=== PATIENT | female | born 1940 | race Caucasian/White ===

== ENCOUNTER 2020-12-19 08:20 | Outpatient (RCR) | payer MEDICARE, SELFPAY | END 2020-12-19 23:59 | LOC: IMMUN 08:20 | PROVIDERS: PCP Family Medicine; Visit Provider Family Medicine | DX: Z23 Encounter for immunization (principal) | CPT/HCPCS: 0011A; 0012A; 91301 ==

== ENCOUNTER 2023-04-03 10:06 | Inpatient (IN) | payer MEDICARE, MEDICAID, SELFPAY ==
[2023-04-03 10:07] VITALS: BP 135/75; PULSE 80; RESP 14; TEMP 36.9; O2SAT 97; BMI 35.9
--- NOTE | 2023-04-03 10:18 | ED.VIS.FALL ---
HPI HPI - Fall History of Present Illness Chief Complaint: Fall PFSH PFSH Home Medications hydrochlorothiazide 12.5 mg tablet 12.5 mg PO DAILY 04/03/23 [History Last Taken Unknown] losartan 100 mg tablet 100 mg PO DAILY 04/03/23 [History Last Taken Unknown] metformin 1,000 mg tablet 1,000 mg PO BID 04/03/23 [History Last Taken Unknown] simvastatin 40 mg tablet 40 mg PO QHS 04/03/23 [History Last Taken Unknown] Allergy/AdvReac Type Severity Reaction Status Date / Time dapagliflozin [From Farxiga] Allergy Hives Verified 04/03/23 10:21 ramipril [From Altace] Allergy Other Verified 04/03/23 10:20 EXAM Physical Exam Const Vital Signs: 04/03/23 10:07 04/03/23 10:38 04/03/23 12:07 Temperature 98.4 F Temperature Source Temporal Pulse Rate 80 84 Respiratory Rate 14 16 Respiratory Effort Normal Non-Labored Respiratory Pattern Normal Blood Pressure 135/75 H 143/70 H Blood Pressure Mean 95 94 Pulse Ox 97 98 Oxygen Delivery Method Room Air Room Air MDM MDM MDM Narrative Medical decision making narrative: HISTORY OF PRESENT ILLNESS: 83-year-old female here for fall, diffuse weakness in the setting of several days of diarrhea. History is provided by the patient and daughter. The patient states she has been diffusely weak and having multiple falls over the last several weeks. Most recently last night when she fell forward as her chair started to move backwards hitting her head. She denies taking blood thinners. Denies loss of consciousness or vomiting. Denies focal numbness or weakness. Daughter further states patient's been suffering from several days of diarrhea. Patient states she has no recent travel, antibiotics, surgeries or sick contacts. They also state the patient took approximately 3 doses of her home antidiabetes medicines as well as antihypertensives. Daughter notes approximately 12 hours after this her blood sugars were running low as low as 54. They further state the patient's had lower extremity edema and mild dyspnea on exertion over the last several days to weeks as well. The patient denies any cough, chest pain. She denies any vomiting. She does note increased urinary frequency as well REVIEW OF SYSTEMS: Pertinent positives: Weakness, diarrhea, shortness of breath, lower extremity edema, dyspnea on exertion Pertinent negatives: Chest pain, headache, focal weakness PHYSICAL EXAM: Nursing triage notes reviewed, Vital signs reviewed Primary Survey Airway: Intact Breathing: Bilateral breath sounds Circulation: Palpable bilateral femorals, Palpable bilateral radial, Palpable bilateral DP and Palpable bilateral PT Disability / Spine precautions GCS Score: Eye Openin Verbal Response: 5 Motor Response: 6 Secondary Survey Constitutional: Please see MDM Head: Atraumatic, Midface stable, NO jaw malocclusion, No Cephalohematoma, and No Lacerations noted Eye: Pupils equal round and reactive to light, Extraocular muscles intact and No periorbital ecchymosis or stepoff, no evidence of entrapment ENT: Oropharynx clear, no lacerations, no hemotympanum, no raccoon eyes or medrano sign Cervical spine / Neck: No cervical spine bony tenderness, crepitance, or stepoff deformity Trachea midline Lungs: Clear to auscultation, No asymmetric rise and No crepitus, no flail chest Cardiac: Regular rate and rhythm and No murmurs Abdomen: Soft, Nontender and No rebound Pelvis: Pelvis stable to compression : No evidence of genital injury Back: No midline bony tenderness to thoracic/lumbar/sacral spines Neuro: At baseline, intact strength and sensation in bilateral upper and lower extremities. 2+ patellar reflexes bilaterally. Extremities: NO gross Deformities, 2+ pitting edema to bilateral lower extremities Psych: Normal affect Nursing triage notes reviewed, Vital signs reviewed MEDICAL DECISION MAKING: Chief Complaint: Weakness, diarrhea, falls External records reviewed: No recent ED visits or encounters in our system. [facility] Narrative: The patient was hemodynamically stable, afebrile, nontoxic-appearing. No focal neurologic deficits. Primary secondary trauma surveys concerning for the following I considered the following differential diagnosis: Intracranial hemorrhage, cervical spine abnormality, hypoglycemia, dehydration, CHF exacerbation, pneumonia, COVID, UTI, anemia, electrolyte abnormalities, COVID, flu I obtained a broad lab and imaging work-up to further elucidate the etiology of patient's complaints. CT scans of the head and cervical spine were negative for acute bony injury. EKG without evidence of STEMI. No evidence of UTI. No evidence of hypoglycemia or significant dehydration however there was evidence of significant hyponatremia. Chest x-ray showed evidence of possible pneumonia. These 2 diagnoses likely explain a lot of the patient's symptoms. Hyponatremia is likely secondary to diarrhea. Patient does note a cough, she is not febrile, she is hypoxic, she has no white count lower suspicion for pneumonia but will give prophylactic antibiotics given hyponatremia and association with legionella. I suspect the patient's hyponatremia may be secondary to volume overload given lower extremity edema, elevated BNP and this may explain the patient's consolidations on x-ray which may be pulmonary edema. Patient will require inpatient admission for sodium correction, possible diuresis, possible antibody microbial therapy. Discussed with hospitalist Dr. Caballero who agreed to admit the patient Factors affecting care: Type 2 diabetes, hypertension hyperlipidemia Social determinants of health: Elderly, poor health literacy History obtained from others: The patient's daughter Shared decision making: I will have a discussion with the patient and or visitors regarding risk/benefits of further testing or admission. They will be made aware of of the risk/benefits inherent in this decision they will be given the opportunity to voice understanding. Consults: Lab Data Attestation: I reviewed the patient's lab results. Lab results narrative: EKG with normal sinus rhythm, normal axis, normal intervals, no obvious STEMI, no ischemic changes, no prior for comparison CBC without leukocytosis to suggest systemic inflammation, mild anemia with no prior for comparison, no thrombocytopenia UA without evidence of infection noted glucosuria LFTs without evidence of significant hepatobiliary obstruction there is mild elevation alk phosphatase however this is not significant likely is not contributory to the patient's symptoms Lipase is wnl indicating no pancreatic inflammation. Troponin is negative, no evidence of myocardial ischemia BNP elevated consistent with volume overload COVID, flu negative Labs: Laboratory Results - last 24 hr 04/03/23 04/03/23 04/03/23 10:45 10:50 10:50 WBC 10.2 RBC 3.34 L Hgb 10.3 L Hct 30.8 L MCV 92.2 MCH 30.8 MCHC 33.4 RDW Std Deviation 44.9 H RDW Coeff of Dora 13.2 Plt Count 299 MPV 9.1 Immature Gran % (Auto) 0.900 Neut % (Auto) 76.2 H Lymph % (Auto) 15.3 L [place] % (Auto) 6.4 Eos % (Auto) 0.9 Baso % (Auto) 0.3 Absolute Neuts (auto) 7.8 H Absolute Lymphs (auto) 1.55 Nucleated RBC % 0 Sodium Potassium Chloride Carbon Dioxide Anion Gap BUN Creatinine Estim Creat Clear Calc Est GFR (MDRD) Af Amer Est GFR (MDRD) Non-Af BUN/Creatinine Ratio Glucose Calcium Total Bilirubin 0.40 Direct Bilirubin 0.14 AST 23 ALT 27 Alkaline Phosphatase 135 H Troponin I High Sens B-Natriuretic Peptide Total Protein 6.5 Albumin 2.6 L Globulin 3.9 Lipase Urine Color Yellow Urine Clarity Clear Urine pH 7.0 Ur Specific [place] 1.010 Urine Protein Negative Urine Glucose (UA) 100 H Urine Ketones Negative Urine Occult Blood Negative Urine Nitrite Negative Urine Bilirubin Negative Urine Urobilinogen Normal Ur Leukocyte Esterase Negative Urine RBC 0 SEEN Urine WBC 0 SEEN Ur Squamous Epith Cells 0 SEEN Urine Bacteria 0 SEEN Urine Mucus 0 SEEN 04/03/23 04/03/23 10:50 10:50 WBC RBC Hgb Hct MCV MCH MCHC RDW Std Deviation RDW Coeff of Dora Plt Count MPV Immature Gran % (Auto) Neut % (Auto) Lymph % (Auto) [place] % (Auto) Eos % (Auto) Baso % (Auto) Absolute Neuts (auto) Absolute Lymphs (auto) Nucleated RBC % Sodium 120 L Potassium 4.1 Chloride 84 L Carbon Dioxide 28.0 Anion Gap 8 BUN 17 Creatinine 0.83 Estim Creat Clear Calc 35.59 Est GFR (MDRD) Af Amer 84 Est GFR (MDRD) Non-Af 69 BUN/Creatinine Ratio 20.4 H Glucose 184 H Calcium 8.3 L Total Bilirubin Direct Bilirubin AST ALT Alkaline Phosphatase Troponin I High Sens 11 B-Natriuretic Peptide 262.3 H Total Protein Albumin Globulin Lipase 60 Urine Color Urine Clarity Urine pH Ur Specific [place] Urine Protein Urine Glucose (UA) Urine Ketones Urine Occult Blood Urine Nitrite Urine Bilirubin Urine Urobilinogen Ur Leukocyte Esterase Urine RBC Urine WBC Ur Squamous Epith Cells Urine Bacteria Urine Mucus Radiography Chest X-Ray - ED: Read by ED Physician Diagnostic Testing: Clinical Impression(s) from Imaging Studies Chest X-Ray 04/03/23 11:00 IMPRESSION: Mild inflammation or infection in the lungs with mild opacities in the left mid and bilateral lower lungs. Electronically Signed: Huyen Willis MD at 11:16 EDT , Brain CT 04/03/23 11:13 IMPRESSION: No acute intracranial process identified. Chronic involutional and white matter changes. Dehiscence of the right maxillary sinus floor from age-indeterminate trauma or infection. Electronically Signed: Huyen Willis MD at 12:03 EDT , Cervical Spine CT 04/03/23 11:13 IMPRESSION: No evidence for acute fracture or dislocation in the cervical spine. Multilevel degenerative disc disease. Mild ventral epidural soft tissue thickening at C2-3 which may be degenerative from disc extrusion and migration although small epidural hematoma not excluded with a history of trauma. Electronically Signed: Huyen Willis MD at 12:10 EDT , Chest x-ray by my read shows mild pulmonary edema, questionable opacity in the left lung field. Discharge Plan Triage Chief Complaint: Fall ED Provider: Chi Garrido Dx/Rx/DC Orders Prescriptions: No Action simvastatin 40 mg tablet 40 mg PO QHS metformin 1,000 mg tablet 1,000 mg PO BID losartan 100 mg tablet 100 mg PO DAILY hydrochlorothiazide 12.5 mg tablet 12.5 mg PO DAILY Primary Care Provider: José Antonio Evans Referrals: Donaldo Diaz MD [Non-Staff] -
--- NOTE | 2023-04-03 10:40 | EKG12_ITS ---
Test Reason : WEAKNESS Blood Pressure : / mmHG Vent. Rate : 083 BPM Atrial Rate : 083 BPM P-R Int : 170 ms QRS Dur : 084 ms QT Int : 368 ms P-R-T Axes : 096 011 -14 degrees QTc Int : 432 ms Sinus rhythm with Premature supraventricular complexes Nonspecific ST abnormality Abnormal ECG Confirmed by MACIEL OSCAR, NIKKI ([id number]), senior technical editor AZUCENA HUNTER ([id number]) on 04/05/2023 10:46:22 AM Referred By: Confirmed By:NIKKI ST MD
[2023-04-03 10:49] LABS: Bacteria 0 SEEN /hpf (None Seen); Mucous, Urine 0 SEEN /hpf (<or=2+); Red Blood Cells-Urine 0 SEEN /hpf (0-5); Squamous Epithelial Cells - UA 0 SEEN /hpf (5-10); White Blood Cells 0 SEEN /hpf (0-5)
[2023-04-03 10:53] LABS: Color, Urine Yellow (Yellow); Glucose, Dipstick 100 mg/dl (Normal); Ketone-Dipstick Negative (Negative); Leukocyte Esterase-Dipstick Negative /ul (Negative); Nitrite-Dipstick Negative (Negative); Occult Blood-Urine Negative /ul (Negative); Protein-Dipstick Negative (Negative); Urine Bilirubin Dipstick Negative (Negative); Urine Clarity Clear (Clear); Urine Urobilinogen Normal (Normal)
[2023-04-03 10:56] LABS: Absolute Lymphocyte Count 1.55 X10^3/uL (0.83-4.51); Absolute Neutrophil Count 7.8 X10^3/uL (2.0-7.7); Basophil# 0.03 X10^3/uL; Basophil% 0.3 % (0-1); Eosinophil# 0.09 X10^3/uL; Eosinophils% 0.9 % (0-5); Hematocrit 30.8 % (37-47); Hemoglobin 10.3 g/dL (12.0-15.0); Lymphocyte # 1.55 X10^3/ul (0.83-4.51); Lymphocyte % 15.3 % (19-41); Mean Corp Hgb Conc 33.4 g/dL (32-36); Mean Corpuscular Hgb 30.8 pg (27.0-32.0); Mean Corpuscular Volume 92.2 fL (81-99); Mean Platelet Vol. 9.1 fl (6.2-12.0); Monocyte# 0.65 X10^3/uL; Monocyte% 6.4 % (0-10); NRBC Flagged by Analyzer 0 % (0-5); Neutrophil # 7.75 X10^3/uL (2.7-7.7); Neutrophil % 76.2 % (47-70); Platelet Count 299 K/mm3 (150-450); RBC Distribution Width CV 13.2 % (11.6-14.6); RBC Distribution Width SD 44.9 fl (35.1-43.9); Red Blood Count 3.34 M/mm3 (4.2-5.4); White Blood Count 10.2 K/mm3 (4.4-11.0)
--- NOTE | 2023-04-03 11:00 | RAD_ITS ---
HISTORY: SOB. TECHNIQUE: XR Chest 2 Views. COMPARISON: None. FINDINGS: CARDIOMEDIASTINAL BORDERS: Cardiac silhouette upper limits of normal in size with mitral valvular calcification noted. Calcification of the aorta. LUNGS: Mild opacities in the left mid and bilateral lower lungs. PLEURA: No pleural effusion or pneumothorax seen. OSSEOUS STRUCTURES: Degenerative change and osteopenia. RAD/Chest PA and Lateral IMPRESSION: Mild inflammation or infection in the lungs with mild opacities in the left mid and bilateral lower lungs. Electronically Signed: Huyen Willis MD at 11:16 EDT ,
--- NOTE | 2023-04-03 11:13 | CT_ITS ---
HISTORY: Fall, head trauma. TECHNIQUE: Multiple axial images were obtained of the head without intravenous contrast. A radiation dose optimization technique was used for this scan. 240 images. COMPARISON: None. FINDINGS: BRAIN PARENCHYMA: Multiple foci and zones of low attenuation in the bilateral cerebral white matter compatible with chronic small vessel ischemic gliosis. No acute intra-axial hemorrhage identified. CSF SPACES: Generalized volume loss. No midline shift or other significant mass effect. No acute extra-axial hemorrhage seen. OTHER: Intact calvarium. Mild maxillary sinus mucosal thickening dehiscence of the right maxillary sinus floor. Unremarkable orbits. CT/Brain/Head without Contrast IMPRESSION: No acute intracranial process identified. Chronic involutional and white matter changes. Dehiscence of the right maxillary sinus floor from age-indeterminate trauma or infection. Electronically Signed: Huyen Willis MD at 12:03 EDT ,
--- NOTE | 2023-04-03 11:13 | CT_ITS ---
HISTORY: Fall, neck pain. TECHNIQUE: Helically acquired images were obtained of the cervical spine without contrast. 2D reformatted images were reviewed. A radiation dose optimization technique was used for this scan. 385 images. COMPARISON: None. FINDINGS: VERTEBRAE: Vertebral body heights maintained. Generalized osteopenia. Small odontoid cyst. ALIGNMENT: No significant anterior or posterior subluxation. Mild straightening of the cervical lordosis. INTERVERTEBRAL DISCS: Degenerative disc and facet disease of C2-C3 and C3-4 with mild hyperdensity surrounding the thecal sac. Degenerative endplate changes with intervertebral disc space narrowing and posterior disc bulge osteophyte complexes of C5-6 and C6-7. SOFT TISSUES: No prevertebral soft tissue swelling. CT/Spine Cervical without Contras IMPRESSION: No evidence for acute fracture or dislocation in the cervical spine. Multilevel degenerative disc disease. Mild ventral epidural soft tissue thickening at C2-3 which may be degenerative from disc extrusion and migration although small epidural hematoma not excluded with a history of trauma. Electronically Signed: Huyen Willis MD at 12:10 EDT ,
[2023-04-03 11:16] LABS: Anion Gap 8 (5-15); BUN 17 mg/dL (7-18); BUN/Creat Ratio 20.4 RATIO (10-20); Calcium,Total 8.3 mg/dL (8.5-10.1); Chloride 84 mmol/L (98-107); Creatinine, Serum 0.83 mg/dL (0.55-1.02); EST Glomerular Filtration Rate 69 mL/min (>60); Est Glom Filt Rate - Afr Amer 84 mL/min (>60); Estimated Creatinine Clearance 35.59 ml/min; Glucose 184 mg/dL (74-106); Lipase 60 U/L (13-75); Potassium 4.1 mmol/L (3.5-5.1); Sodium Level 120 mmol/L (136-145); Troponin-I HS 11 pg/mL (3.0-54.0)
[2023-04-03 11:17] LABS: AST(SGOT) 23 U/L (15-37); Alanine Aminotransfer ALT/SGPT 27 U/L (13-56); Albumin, Serum 2.6 g/dL (3.2-5.0); Alkaline Phosphatase 135 U/L (45-117); BNP,B-Type NATRIURETIC PEPTIDE 262.3 pg/mL (0-100); Bilirubin, Direct 0.14 mg/dL (0.00-0.30); Globulin 3.9 g/dL (2.2-4.2); Protein, Total 6.5 g/dL (6.4-8.2)
[2023-04-03 12:07] VITALS: BP 143/70; PULSE 84; RESP 16; O2SAT 98
[2023-04-03 12:17] VITALS: O2SAT 99
[2023-04-03] MEDS: Furosemide 20 MG/2 ML VIAL IV ×2 (12:35→18:16)
[2023-04-03] MEDS: Ceftriaxone 1 GM/50 ML BAG IV (12:47)
--- NOTE | 2023-04-03 13:23 | HP.PCM.HOS_ITS ---
HPI - General General Date of Admission: 04/03/23 Date of Service: 04/03/23 Chief Complaint: Generalized weakness and falls HPI Narrative GRUPO TRUJILLO, is a 83 F with a history of hypertension and type 2 diabetes who presented to [facility] 04[facility]03[facility]23 with falls and weakness and 3 days of diarrhea. Patient seen with family member at bedside who provided part of the history. Patient has been following for a couple weeks is following a total of 4 times most recently last night which is part of what prompted the ED visit. She has been having some generalized weakness but possibly more weak left versus right in her legs. Denies any new numbness or tingling anywhere, has a chronic pinched nerve in her back that causes some tingling in her left hand that comes and goes but this is unchanged. Intermittently has some headaches that are global but denies any at this current time and has had no changes in vision. No fevers or chills though stays cold. Presently alert and answering questions appropriately, daughter reports her mother was somewhat confused yesterday but presently seems to be doing better from that standpoint. The diarrhea has been for 3 days without blood, no abdominal pain or nausea or vomiting. Patient feels she is maintaining adequate nutrition though said she could be eating better. Occasionally will have spells where she feels dizzy from laying to standing when getting up from her bed and she will stay there for several seconds and will resolve and then she will not have any further difficulties. Denies any neck or head pain, denies any other pain in her body, limbs, joints at present. Daughter notes she feels this all worsened after she had 2 teeth pulled 2 weeks ago that she had been doing better prior to that. Only took 1 dose of pain medication and has not since and has not been on antibiotics. Daughter did note that her glucose has been in the 50s at home several times and was low yesterday which may have contributed to some of her confusion. Does not know any weight gain or swelling the legs do appear edematous. In ED white count within normal limits, creatinine 0.83 with a BUN of 17, glucose of 184 and UA not suggestive of infection. Blood pressure 162/58 with a heart rate 94 and 98% on room air. She was noted however to have a BNP of 267 as well as a sodium of 120 and a chloride of 84. Chest x-ray in the ED with mild inflammation or infection in the lungs with mild opacities in the left mid and bilateral lower lungs. She is given a dose of azithromycin and Rocephin as well as Lasix and hospitalist consulted for admission. [facility] Medical History (Updated 04/03/23 @ 14:[address] Majo Caballero MD) High cholesterol HTN (hypertension) Home Medications hydrochlorothiazide 12.5 mg tablet 12.5 mg PO DAILY 04/03/23 [History Last Taken Unknown] losartan 100 mg tablet 100 mg PO DAILY 04/03/23 [History Last Taken Unknown] metformin 1,000 mg tablet 1,000 mg PO BID 04/03/23 [History Last Taken Unknown] simvastatin 40 mg tablet 40 mg PO QHS 04/03/23 [History Last Taken Unknown] Allergy/AdvReac Type Severity Reaction Status Date / Time dapagliflozin [From Farxiga] Allergy Hives Verified 04/03/23 10:21 ramipril [From Altace] Allergy Other Verified 04/03/23 10:20 Surgical History (Updated 04/03/23 @ 12:41 by Shani Orantes RN) History of tubal ligation Hx of appendectomy Social History Smoking Status: Never smoker ROS ROS Narrative General: Denies fever/chills, frequently cold HENT: Denies headache at this time but will intermittently have some generalized headaches off and on, denies stuffy nose, denies sore throat EYES: Denies changes in vision Resp: Denies cough, denies shortness of breath Cardiac: Denies chest pain GI: Denies abdominal pain, reports several days of diarrhea, denies nausea/vomiting : Denies changes in urination Extremity: Denies swelling the swelling appreciated on exam MSK: Some generalized weakness left possibly greater than right Neuro: Has some chronic intermittent numbness and tingling into the left hand from a pinched nerve, nothing new Heme: Denies any bleeding or bruising Skin: Denies rashes Psychiatric: No complaints voiced Vital Signs Vital Signs Vital Signs: 04/03/23 10:07 04/03/23 10:38 04/03/23 12:07 Temperature 98.4 F Temperature Source Temporal Pulse Rate 80 84 Respiratory Rate 14 16 Respiratory Effort Normal Non-Labored Respiratory Pattern Normal Blood Pressure 135/75 H 143/70 H Blood Pressure Mean 95 94 Pulse Ox 97 98 Oxygen Delivery Method Room Air Room Air Weight Weight: 83.461 kg Body Mass Index (BMI) 35.9 Physical Exam Narrative General: Alert, answers questions appropriately, no apparent distress HEENT: Atraumatic, normocephalic Eyes: Anicteric, normal conjunctiva, extraocular movements intact, pupils equal Neck: Supple Respiratory: Overall clear to auscultation bilaterally without wheezes or rhonchi, normal respiratory effort Cardiovascular: Regular rate and rhythm GI: Soft, nontender, nondistended Extremities: No edema Musculoskeletal: Strength 5 out of 5 in right upper extremity, 5 out of 5 left upper extremity, 5 out of 5 right lower extremity, 5 out of 5 left lower extremity Neuro: No overt focal neurological deficits, cranial nerves II through XII intact, [id number] without significant difficulty bilaterally, no clonus in feet, no hyperreflexia in upper extremities, brachioradialis reflexes equal Skin: No rashes appreciated Psych: Cooperative Results Lab / Micro Data Result Diagrams: 04/03/23 10:50 04/03/23 10:50 Labs: Laboratory Results - last 24 hr 04/03/23 10:45: Urine Color Yellow, Urine Clarity Clear, Urine pH 7.0, Ur Specific [place] 1.010, Urine Protein Negative, Urine Glucose (UA) 100 H, Urine Ketones Negative, Urine Occult Blood Negative, Urine Nitrite Negative, Urine Bilirubin Negative, Urine Urobilinogen Normal, Ur Leukocyte Esterase Negative, Urine RBC 0 SEEN, Urine WBC 0 SEEN, Ur Squamous Epith Cells 0 SEEN, Urine Bacteria 0 SEEN, Urine Mucus 0 SEEN 04/03/23 10:50: Total Bilirubin 0.40, Direct Bilirubin 0.14, AST 23, ALT 27, Alkaline Phosphatase 135 H, Total Protein 6.5, Albumin 2.6 L, Globulin 3.9 04/03/23 10:50: WBC 10.2, RBC 3.34 L, Hgb 10.3 L, Hct 30.8 L, MCV 92.2, MCH 30.8, MCHC 33.4, RDW Std Deviation 44.9 H, RDW Coeff of Dora 13.2, Plt Count 299, MPV 9.1, Immature Gran % (Auto) 0.900, Neut % (Auto) 76.2 H, Lymph % (Auto) 15.3 L, [place] % (Auto) 6.4, Eos % (Auto) 0.9, Baso % (Auto) 0.3, Absolute Neuts (auto) 7.8 H, Absolute Lymphs (auto) 1.55, Nucleated RBC % 0 04/03/23 10:50: Sodium 120 L, Potassium 4.1, Chloride 84 L, Carbon Dioxide 28.0, Anion Gap 8, BUN 17, Creatinine 0.83, Estim Creat Clear Calc 35.59, Est GFR (MDRD) Af Amer 84, Est GFR (MDRD) Non-Af 69, BUN/Creatinine Ratio 20.4 H, Glucos e 184 H, Calcium 8.3 L, Troponin I High Sens 11, Lipase 60 04/03/23 10:50: B-Natriuretic Peptide 262.3 H Micro: Microbiology 04/03/23 10:45 Nasal Secretion SARS-CoV-2 & FLU Antigen (Rapid) - Final Radiology Impression Chest X-Ray 04/03/23 11:00 IMPRESSION: Mild inflammation or infection in the lungs with mild opacities in the left mid and bilateral lower lungs. Electronically Signed: Huyen Willis MD at 11:16 EDT , Brain CT 04/03/23 11:13 IMPRESSION: No acute intracranial process identified. Chronic involutional and white matter changes. Dehiscence of the right maxillary sinus floor from age-indeterminate trauma or infection. Electronically Signed: Huyen Willis MD at 12:03 EDT , Cervical Spine CT 04/03/23 11:13 IMPRESSION: No evidence for acute fracture or dislocation in the cervical spine. Multilevel degenerative disc disease. Mild ventral epidural soft tissue thickening at C2-3 which may be degenerative from disc extrusion and migration although small epidural hematoma not excluded with a history of trauma. Electronically Signed: Huyen Willis MD at 12:10 EDT , Assessment & Plan Assessment/Plan (1) Hyponatremia: (2) HTN (hypertension): PLAN: Plan #Hyponatremia -Sodium in the ED of 120 with unclear baseline -Patient no seizures and presently alert and answering questions appropriately -We will order serum and urine osmolality, TSH, urine lytes -Given peripheral edema and elevated BNP suspect this could be fluid overload and review of chest x-ray appears more consistent with overload of fluid than pneumonia especially given lack of shortness of breath, fever, cough -Do not feel we need empiric abx unless cough, SOB, or procal/laboratory values concerning -We will check echo -We will hold hydrochlorothiazide which is likely the culprit in conjunction -Given poor appetite could certainly have low solute as a contribution however patient appears volume up and not hypovolemic and does not appear euvolemic so less likely SIADH -We will check Legionella antigen given diarrhea and sodium however #Generalized weakness and falls -Patient reports generalized weakness and falls with left extremity lower than right, on exam strength appeared equal but given her falls will get imaging of lower back to verify no abnormalities -CT of the cervical spine showed some mild ventral epidural soft tissue thickening at C2-C3 which may be degenerative from disc extrusion and migration although small epidural hematoma not excluded with history of trauma -Neurologically intact, can consider further or repeat imaging tomorrow pending status and level of concern -CT head with chronic involutional white matter changes -PT/OT #Diarrhea -x3 days -Covid negative -Enteric panel pending -Holding metformin #Hypertension -Hold hctz -Continue losartan -Can consider orthostats though falls appear to have been mechanical in nautre #Type 2 diabetes mellitus -Glucose checks and given her recent hypoglycemia we will hold sliding scale and hold her home metformin #DVT ppx: Lovenox subcu Majo Caballero MD Time spent in the patient's overall evaluation,decision-making process, review of diagnostic data, adjustment of management, discussion with other providers, nursing nursing and ancillary staff involved in patient's care documentation, 60 minutes Charges/Coding Visit Charges Inpatient E&M: 79000 Init Hosp L2
[2023-04-03 13:47] VITALS: BP 162/58; PULSE 94; RESP 15; TEMP 36.4; O2SAT 98
--- NOTE | 2023-04-03 14:35 | CT_ITS ---
STUDY: CT LUMBAR SPINE WITHOUT CONTRAST REASON FOR EXAM: Female, 83 years old. s/p fall TECHNIQUE: The patient was scanned in a multi detector CT scanner. High resolution transaxial imaging was performed. Images were obtained from T12 to S1. Sagittal and coronal images were reconstructed. Individualized dose optimization techniques were used for this CT. COMPARISON: None FINDINGS: Normal lumbar lordosis. There is a dextroscoliosis of the lumbar spine. Normal vertebrae of the lumbar spine. L1-2: There is bilateral facet arthropathy. Loss of intervertebral disc height. There is endplate spondylosis of the vertebral body. Unremarkable central canal. Unremarkable intervertebral neuroforamina. L2-3: There is bilateral facet arthropathy. Loss of intervertebral disc height. There is endplate spondylosis of the vertebral body. Mild left neural foraminal stenosis. Vacuum disc phenomenon. There is bilateral ligamentum flavum thickening. Severe spinal stenosis. L3-4: There is bilateral facet arthropathy. Loss of intervertebral disc height. There is endplate spondylosis of the vertebral body. Mild bilateral neural foraminal stenosis. Vacuum disc phenomenon. There is bilateral ligamentum flavum thickening. Severe spinal stenosis. L4-5: There is bilateral facet arthropathy. Loss of intervertebral disc height. There is endplate spondylosis of the vertebral body. Mild bilateral neural foraminal stenosis. There is a Grade 1 anterolisthesis of L4 on L5. Vacuum disc phenomenon. There is bilateral ligamentum flavum thickening. Severe spinal stenosis. L5-S1: There is bilateral facet arthropathy. Loss of intervertebral disc height. There is endplate spondylosis of the vertebral body. Mild bilateral neural foraminal stenosis. Normal visualized paraspinous soft tissue structures. CT/Spine Lumbar without Contrast IMPRESSION: (NOT LISTED IN ORDER OF SIGNIFICANCE) Multilevel degenerative changes, as described above. L2-3: Mild left neural foraminal stenosis. Severe spinal stenosis. L3-4: Mild bilateral neural foraminal stenosis. Severe spinal stenosis. L4-5: Mild bilateral neural foraminal stenosis. There is a Grade 1 anterolisthesis of L4 on L5. Severe spinal stenosis. L5-S1: Mild bilateral neural foraminal stenosis. Electronically Signed: Tyler Lozano MD at 19:53 EDT ,
--- NOTE | 2023-04-03 14:35 | ECHOD_ITS ---
Reason For Study: Elevated BNP, Edematous Procedure This was a 2D Doppler, Color Flow transthoracic echocardiogram. Exam performed portable in patient room. Left Ventricle Normal LV size. Left ventricular systolic function is hyperdynamic. The estimated ejection fraction is 70 %. Stage 1 diastolic dysfunction. No regional wall motion abnormalities noted. Right Ventricle Normal RV size. Normal systolic function. Atria Normal left atrium. Normal right atrium. Mitral Valve There is moderate mitral annular calcification. Tricuspid Valve Normal tricuspid valve. Mild tricuspid valve insufficiency. Pulmonary artery systolic pressure is 30 mmHg. Aortic Valve Trisinus/trileaflet aortic valve. Mild focal aortic valve calcification. Peak aortic valve gradient 34 mmHg. Mean aortic valve gradient 20 mmHg. Moderate aortic stenosis. Pulmonic Valve Normal pulmonic valve. Mild (1+) pulmonic valve insufficiency. Great Vessels Calcified aortic root. The pulmonary artery is normal size. Normal inferior vena cava. Pericardium/Pleural No pericardial effusion. MMode/2D Measurements & Calculations LVIDd: 3.9 cm IVSd: 1.0 cm LVOT diam: 2.1 cm LVIDs: 2.3 cm LVPWd: 0.96 cm LVOT area: 3.6 cm2 RVDd: 2.7 cm FS: 40.1 % Ao root diam: 3.2 cm LAV(MOD-bp): 47.2 ml LVAd ap4: 18.4 cm2 ACS: 0.92 cm LAV(MOD-bp) Indexed: 26.3 ml/m2 LVLd ap4: 5.9 cm LAV(MOD-sp2): 38.9 ml EDV(MOD-sp4): 48.5 ml LAV(MOD-sp4): 45.6 ml EDV(sp4-el): 48.7 ml LVAs ap4: 8.8 cm2 LVLs ap4: 4.2 cm ESV(MOD-sp4): 16.0 ml ESV(sp4-el): 15.5 ml EF(MOD-sp4): 67.1 % EF(sp4-el): 68.1 % SV(MOD-sp4): 32.6 ml SV(sp4-el): 33.2 ml LA A4 area: 18.8 cm2 LA dimension(2D): 3.3 cm RA A4 area: 10.0 cm2 Time Measurements MV dec time: 0.29 sec Doppler Measurements & Calculations MV E max tino: 109.6 cm/sec Lat Peak E' Tino: 6.0 cm/sec Med Peak E' Tino: 4.9 cm/sec MV A max tino: 134.5 cm/sec E/E' lat: 18.2 E/E' med: 22.2 MV E/A: 0.81 MV V2 max: 126.4 cm/sec Ao V2 max: 292.1 cm/sec MV max P.4 mmHg MV dec slope: 374.7 cm/sec2 Ao max P.1 mmHg MV V2 mean: 79.6 cm/sec Ao V2 mean: 208.8 cm/sec MV mean P.8 mmHg Ao mean P.5 mmHg MV V2 VTI: 34.9 cm Ao V2 VTI: 56.2 cm AV (velocity ratio): 0.41 MVA(VTI): 2.4 cm2 RUPESH(I,D): 1.5 cm2 RUPESH(V,D): 1.5 cm2 LV V1 max: 119.9 cm/sec SV(LVOT): 84.5 ml PA V2 max: 89.6 cm/sec LV V1 max P.8 mmHg LV V1 mean P.2 mmHg LV V1 mean: 85.2 cm/sec LV V1 VTI: 23.3 cm PI end-d tino: 103.7 cm/sec TR max tino: 252.3 cm/sec TR max P.5 mmHg ECHO/Echo Complete Interpretation Summary Normal LV size. Left ventricular systolic function is hyperdynamic. The estimated ejection fraction is 70 %. Stage 1 diastolic dysfunction. Mild focal aortic valve calcification. Mean aortic valve gradient 20 mmHg. Moderate aortic stenosis. Ordering Physician: Majo Caballero Referring Physician: José Antonio Evans Performed By: [place] RDCS, RVT
--- NOTE | 2023-04-03 14:35 | CT_ITS ---
STUDY: CT Abdomen And Pelvis W/O Contrast Injection 04/03/2023 7:44 PM REASON FOR EXAM: Female, 83 years old. Abdominal pain falls, eval for fractures or other pathology Individualized dose optimization techniques were used for this CT. COMPARISON: None. TECHNIQUE: CT Abdomen And Pelvis W/O Contrast Injection FINDINGS: There are atherosclerotic calcifications of visualized coronary arteries. The visualized portions of the heart are within normal limits. Normal liver. There are multiple gallstones. Normal spleen. Normal pancreas. Normal bilateral adrenal glands. Moderate bilateral hydronephroureter. No obstructing ureteral stones. Bilateral perinephric inflammatory stranding. Normal visualized stomach. Normal small intestine. There are multiple colonic diverticula consistent with diverticulosis. There is non-visualization of the appendix. There are calcifications of the abdominal aorta. This is consistent for atherosclerotic disease. There is NO abdominal aortic aneurysm. Vascular workup can be obtained based on clinical correlation. Normal inferior vena cava. Subcentimeter mesenteric lymph nodes. The urinary bladder is distended. This can suggest urinary retention. There is atrophy of the uterus. Normal abdominal wall. There are diffuse degenerative changes of the visualized lumbar spine. There is a Grade 1 anterolisthesis of L4 on L5. CT/Abdomen/Pelvis without Cont IMPRESSION: (NOT LISTED IN ORDER OF SIGNIFICANCE) Moderate bilateral hydronephroureter. No obstructing ureteral stones. There are multiple colonic diverticula consistent with diverticulosis. There are multiple gallstones. Other findings as above. Electronically Signed: Tyler Lozano MD at 19:48 EDT ,
[2023-04-03 14:42] VITALS: BMI 34.6
[2023-04-03] MEDS: 0.9% Saline Lock 10 ML Syringe IV ×2 (14:57→18:16)
[2023-04-03] MEDS: Ondansetron 4 MG/2 ML Vial IV (14:57)
[2023-04-03 15:24] VITALS: BP 159/69; PULSE 85; RESP 12; TEMP 36.8; O2SAT 100
[2023-04-03 15:51] LABS: Erythrocyte Sedimentation Rate 24 mm/hr (0-30)
[2023-04-03 16:19] LABS: Osmolality, Serum 254 mOsm/KG (280-301)
[2023-04-03 16:30] LABS: Anion Gap 9 (5-15); BUN 15 mg/dL (7-18); BUN/Creat Ratio 17.2 RATIO (10-20); Calcium,Total 8.5 mg/dL (8.5-10.1); Chloride 81 mmol/L (98-107); Creatinine, Serum 0.87 mg/dL (0.55-1.02); EST Glomerular Filtration Rate 66 mL/min (>60); Est Glom Filt Rate - Afr Amer 79 mL/min (>60); Estimated Creatinine Clearance 33.96 ml/min; Glucose 239 mg/dL (74-106); Potassium 4.3 mmol/L (3.5-5.1); Sodium Level 118 mmol/L (136-145); T4 Free Direct 1.09 ng/dL (0.76-1.46); Thyroid Stim Hormone (TSH) 2.56 uIU/mL (0.358-3.74)
[2023-04-03 16:47] LABS: Procalcitonin < 0.01 ng/mL (0.00-0.09)
[2023-04-03 16:58] LABS: Osmolality, Urine 285 mOsm/KG
[2023-04-03 17:07] LABS: CRP 8.56 mg/L (0.0-3.0)
[2023-04-03 17:10] LABS: Creatinine, Urine (random) < 13.00 mg/dL (NO RANGE EST.); Urea Nitrogen, Urine 75 mg/dL (NO RANGE EST.); Urine Chloride 120 mmol/L (Not Establ.); Urine Sodium 105 mmol/L (Not Establ.)
--- NOTE | 2023-04-03 17:57 | PCM.HOSP.N ---
Hospitalist Note Na appears to have gone down to 118 however corrected for glucose it is 121, roughly the same. Will place fluid restriction and will give another dose of lasix. BMP q4hr. additionally added sliding scale insulin for coverage to avoid Hyperglycemia but on a low-mod scale to avoid hypoglycemia
[2023-04-03 18:11] LABS: Bedside Glucose 204 mg/dL (74-106)
[2023-04-03 19:16] LABS: Anion Gap 10 (5-15); BUN 15 mg/dL (7-18); Calcium,Total 8.1 mg/dL (8.5-10.1); Chloride 80 mmol/L (98-107); Creatinine, Serum 0.94 mg/dL (0.55-1.02); EST Glomerular Filtration Rate 61 mL/min (>60); Est Glom Filt Rate - Afr Amer 73 mL/min (>60); Estimated Creatinine Clearance 31.43 ml/min; Glucose 257 mg/dL (74-106); Potassium 3.7 mmol/L (3.5-5.1); Sodium Level 117 mmol/L (136-145)
[2023-04-03 21:20] VITALS: BP 127/63; PULSE 79; RESP 15; TEMP 36.6; O2SAT 99
[2023-04-03] MEDS: Insulin Lispro 100 UNIT/ML INSULN.PEN SC (22:17)
[2023-04-03] MEDS: Atorvastatin Calcium 20 MG Tablet PO (22:17)
[2023-04-03] MEDS: Menthol/Lanolin/Calamine/Znox 113 GM Tube 1 APPLIC TOPICAL (22:19)
[2023-04-03 22:54] LABS: Anion Gap 10 (5-15); BUN 14 mg/dL (7-18); BUN/Creat Ratio 16.4 RATIO (10-20); Calcium,Total 7.7 mg/dL (8.5-10.1); Chloride 81 mmol/L (98-107); Creatinine, Serum 0.86 mg/dL (0.55-1.02); EST Glomerular Filtration Rate 67 mL/min (>60); Est Glom Filt Rate - Afr Amer 81 mL/min (>60); Estimated Creatinine Clearance 34.35 ml/min; Glucose 172 mg/dL (74-106); Potassium 3.6 mmol/L (3.5-5.1); Sodium Level 119 mmol/L (136-145)
[2023-04-03 23:16] LABS: Bedside Glucose 186 mg/dL (74-106)
[2023-04-04 03:08] LABS: Anion Gap 8 (5-15); BUN 13 mg/dL (7-18); BUN/Creat Ratio 16.2 RATIO (10-20); Calcium,Total 7.7 mg/dL (8.5-10.1); Chloride 82 mmol/L (98-107); EST Glomerular Filtration Rate 72 mL/min (>60); Est Glom Filt Rate - Afr Amer 87 mL/min (>60); Estimated Creatinine Clearance 36.93 ml/min; Glucose 134 mg/dL (74-106); Potassium 3.5 mmol/L (3.5-5.1); Sodium Level 119 mmol/L (136-145)
[2023-04-04 03:43] VITALS: BP 129/81; PULSE 78; RESP 16; TEMP 36.5; O2SAT 99
[2023-04-04 05:35] LABS: Absolute Lymphocyte Count 2.05 X10^3/uL (0.83-4.51); Absolute Neutrophil Count 6.9 X10^3/uL (2.0-7.7); Basophil# 0.04 X10^3/uL; Basophil% 0.4 % (0-1); Eosinophil# 0.19 X10^3/uL; Eosinophils% 1.9 % (0-5); Hematocrit 30.3 % (37-47); Hemoglobin 10.3 g/dL (12.0-15.0); Lymphocyte # 2.05 X10^3/ul (0.83-4.51); Lymphocyte % 20.7 % (19-41); Mean Corpuscular Hgb 30.4 pg (27.0-32.0); Mean Corpuscular Volume 89.4 fL (81-99); Mean Platelet Vol. 9.2 fl (6.2-12.0); Monocyte# 0.66 X10^3/uL; Monocyte% 6.7 % (0-10); NRBC Flagged by Analyzer 0 % (0-5); Neutrophil # 6.88 X10^3/uL (2.7-7.7); Neutrophil % 69.3 % (47-70); Platelet Count 323 K/mm3 (150-450); RBC Distribution Width SD 42.9 fl (35.1-43.9); Red Blood Count 3.39 M/mm3 (4.2-5.4); White Blood Count 9.9 K/mm3 (4.4-11.0)
[2023-04-04 06:00] VITALS: BMI 34.8
[2023-04-04 07:01] LABS: Anion Gap 9 (5-15); BUN 13 mg/dL (7-18); BUN/Creat Ratio 17.1 RATIO (10-20); Calcium,Total 7.7 mg/dL (8.5-10.1); Chloride 82 mmol/L (98-107); Creatinine, Serum 0.76 mg/dL (0.55-1.02); EST Glomerular Filtration Rate 77 mL/min (>60); Est Glom Filt Rate - Afr Amer 93 mL/min (>60); Estimated Creatinine Clearance 29.54 ml/min; Glucose 120 mg/dL (74-106); Potassium 3.4 mmol/L (3.5-5.1); Sodium Level 119 mmol/L (136-145)
[2023-04-04 07:05] LABS: Bedside Glucose 134 mg/dL (74-106)
--- NOTE | 2023-04-04 08:04 | PCM.PN.HOSP ---
Reason for Visit Reason for Visit: Diagnoses Hypo-osmolality and hyponatremia (04/03/23) Essential (primary) hypertension (04/03/23) Objective Data Objective Data Vital Signs: Vital Signs Temp Pulse Resp BP Pulse Ox O2 Del Method 97.7 F L 78 16 129/81 H 99 Room Air 04/04/23 03:43 04/04/23 03:43 04/04/23 03:43 04/04/23 03:43 04/04/23 03:43 04/04/23 04:07 Oxygen Delivery Method Room Air Weight: 178 lb 5.663 oz Body Mass Index (BMI) 34.8 Intake & Output: Intake and Output for Last 24 Hours 04/02/23 04/03/23 04/04/23 23:59 23:59 23:59 Intake Total 305 / 355 50 / 50 Output Total 300 / 1150 850 / 850 Balance 5 / -795 -800 / -800 Lab / Micro Data Result Diagrams: 04/04/23 05:21 04/04/23 05:21 Labs: Laboratory Results - last 24 hr 04/03/23 10:45: Urine Color Yellow, Urine Clarity Clear, Urine pH 7.0, Ur Specific [place] 1.010, Urine Protein Negative, Urine Glucose (UA) 100 H, Urine Ketones Negative, Urine Occult Blood Negative, Urine Nitrite Negative, Urine Bilirubin Negative, Urine Urobilinogen Normal, Ur Leukocyte Esterase Negative, Urine RBC 0 SEEN, Urine WBC 0 SEEN, Ur Squamous Epith Cells 0 SEEN, Urine Bacteria 0 SEEN, Urine Mucus 0 SEEN 04/03/23 10:50: Total Bilirubin 0.40, Direct Bilirubin 0.14, AST 23, ALT 27, Alkaline Phosphatase 135 H, Total Protein 6.5, Albumin 2.6 L, Globulin 3.9 04/03/23 10:50: WBC 10.2, RBC 3.34 L, Hgb 10.3 L, Hct 30.8 L, MCV 92.2, MCH 30.8, MCHC 33.4, RDW Std Deviation 44.9 H, RDW Coeff of Dora 13.2, Plt Count 299, MPV 9.1, Immature Gran % (Auto) 0.900, Neut % (Auto) 76.2 H, Lymph % (Auto) 15.3 L, Reagan % (Auto) 6.4, Eos % (Auto) 0.9, Baso % (Auto) 0.3, Absolute Neuts (auto) 7.8 H, Absolute Lymphs (auto) 1.55, Nucleated RBC % 0 04/03/23 10:50: Sodium 120 L, Potassium 4.1, Chloride 84 L, Carbon Dioxide 28.0, Anion Gap 8, BUN 17, Creatinine 0.83, Estim Creat Clear Calc 35.59, Est GFR (MDRD) Af Amer 84, Est GFR (MDRD) Non-Af 69, BUN/Creatinine Ratio 20.4 H, Glucose 184 H, Calcium 8.3 L, Troponin I High Sens 11, Lipase 60 04/03/23 10:50: B-Natriuretic Peptide 262.3 H 04/03/23 15:00: ESR 24 04/03/23 15:00: Sodium 118 L*, Potassium 4.3, Chloride 81 L, Carbon Dioxide 28.0, Anion Gap 9, BUN 15, Creatinine 0.87, Estim Creat Clear Calc 33.96, Est GFR (MDRD) Af Amer 79, Est GFR (MDRD) Non-Af 66, BUN/Creatinine Ratio 17.2, Glucose 239 H, Calcium 8.5, C-React Prot Ext Range 8.56 H, TSH 2.56, Free T4 1.09 04/03/23 15:00: Serum Osmolality 254 L 04/03/23 15:00: Procalcitonin < 0.01 04/03/23 16:25: Urine Osmolality 285, Ur Random Sodium 105, Urine Creatinine < 13.00, Urine Potassium 18.0, Urine Chloride 120, Urine Urea Nitrogen 75 04/03/23 16:46: POC Glucose 204 H 04/03/23 18:35: Sodium 117 L*, Potassium 3.7, Chloride 80 L, Carbon Dioxide 27.0, Anion Gap 10, BUN 15, Creatinine 0.94, Estim Creat Clear Calc 31.43, Est GFR (MDRD) Af Amer 73, Est GFR (MDRD) Non-Af 61, BUN/Creatinine Ratio 16.0, Glucose 257 H, Calcium 8.1 L 04/03/23 22:13: POC Glucose 186 H 04/03/23 22:30: Sodium 119 L*, Potassium 3.6, Chloride 81 L, Carbon Dioxide 28.0, Anion Gap 10, BUN 14, Creatinine 0.86, Estim Creat Clear Calc 34.35, Est GFR (MDRD) Af Amer 81, Est GFR (MDRD) Non-Af 67, BUN/Creatinine Ratio 16.4, Glucose 172 H, Calcium 7.7 L 04/04/23 02:32: Sodium 119 L*, Potassium 3.5, Chloride 82 L, Carbon Dioxide 29.0, Anion Gap 8, BUN 13, Creatinine 0.80, Estim Creat Clear Calc 36.93, Est GFR (MDRD) Af Amer 87, Est GFR (MDRD) Non-Af 72, BUN/Creatinine Ratio 16.2, Glucose 134 H, Calcium 7.7 L 04/04/23 05:21: Sodium 119 L*, Potassium 3.4 L, Chloride 82 L, Carbon Dioxide 28.0, Anion Gap 9, BUN 13, Creatinine 0.76, Estim Creat Clear Calc 29.54, Est GFR (MDRD) Af Amer 93, Est GFR (MDRD) Non-Af 77, BUN/Creatinine Ratio 17.1, Glucose 120 H, Calcium 7.7 L 04/04/23 05:21: WBC 9.9, RBC 3.39 L, Hgb 10.3 L, Hct 30.3 L, MCV 89.4, MCH 30.4, MCHC 34.0, RDW Std Deviation 42.9, RDW Coeff of Dora 13.0, Plt Count 323, MPV 9.2, Immature Gran % (Auto) 1.000 H, Neut % (Auto) 69.3, Lymph % (Auto) 20.7, Reagan % (Auto) 6.7, Eos % (Auto) 1.9, Baso % (Auto) 0.4, Absolute Neuts (auto) 6.9, Absolute Lymphs (auto) 2.05, Nucleated RBC % 0 04/04/23 06:45: POC Glucose 134 H Micro: Microbiology 04/03/23 16:25 Urine, Clean Catch Legionella Antigen - Final 04/03/23 16:25 Urine, Clean Catch Streptococcus pneumoniae Antigen (M - Final 04/03/23 10:45 Nasal Secretion SARS-CoV-2 & FLU Antigen (Rapid) - Final Radiography Diagnostic Testing: Radiology Impression Chest X-Ray 04/03/23 11:00 IMPRESSION: Mild inflammation or infection in the lungs with mild opacities in the left mid and bilateral lower lungs. Electronically Signed: Huyen Willis MD at 11:16 EDT , Brain CT 04/03/23 11:13 IMPRESSION: No acute intracranial process identified. Chronic involutional and white matter changes. Dehiscence of the right maxillary sinus floor from age-indeterminate trauma or infection. Electronically Signed: Huyen Willis MD at 12:03 EDT , Cervical Spine CT 04/03/23 11:13 IMPRESSION: No evidence for acute fracture or dislocation in the cervical spine. Multilevel degenerative disc disease. Mild ventral epidural soft tissue thickening at C2-3 which may be degenerative from disc extrusion and migration although small epidural hematoma not excluded with a history of trauma. Electronically Signed: Huyen Willis MD at 12:10 EDT , Abdomen/Pelvis CT 04/03/23 14:35 IMPRESSION: (NOT LISTED IN ORDER OF SIGNIFICANCE) Moderate bilateral hydronephroureter. No obstructing ureteral stones. There are multiple colonic diverticula consistent with diverticulosis. There are multiple gallstones. Other findings as above. Electronically Signed: Tyler Lozano MD at 19:48 EDT , Lumbar Spine CT 04/03/23 14:35 IMPRESSION: (NOT LISTED IN ORDER OF SIGNIFICANCE) Multilevel degenerative changes, as described above. L2-3: Mild left neural foraminal stenosis. Severe spinal stenosis. L3-4: Mild bilateral neural foraminal stenosis. Severe spinal stenosis. L4-5: Mild bilateral neural foraminal stenosis. There is a Grade 1 anterolisthesis of L4 on L5. Severe spinal stenosis. L5-S1: Mild bilateral neural foraminal stenosis. Electronically Signed: Tyler Lozano MD at 19:53 EDT , Physical Exam Narrative General: Alert, Oriented x3, Cooperative HEENT: Atraumatic, PERRLA, EOMI, Normocephalic Oral: Oral mucosa moist. No Gingival or Mucosal Lesions/ Ulcerations Neck: Supple, No JVD, Negative Carotid Bruits Lungs: Air entry diminished in bilateral lung bases. No crepitation/rhonchi Cardiovascular: Regular rate, Regular Rhythm, Normal S1, Normal S2, No murmurs Abdomen: Bowel Sounds Present, Soft, Non Tender, Non-Distended : No renal angle tenderness. No suprapubic tenderness. Extremities: Bilateral lower leg edema. Below knee level edema. Musculoskeletal: ROM restricted. Bilateral knee arthritis. Muscle strength 5/5 at major joints of upper and lower extremities Neuro: No overt focal neurological deficits, cranial nerves II through XII intact, DTR 2+/4. No acute neurological deficit. Cerebellar signs of finger-nose and heel maciel test are negative Skin: No rash. No ulcer. Psych: Cooperative. Flat affect Assessment & Plan Assessment/Plan (1) Hyponatremia: (2) HTN (hypertension): PLAN: Plan 1. Hypotonic hypervolemic hyponatremia: Patient is admitted in PCU. Admitted with serum sodium 120, did not show increase in 24 hours therefore student finance specialist consulted. Patient had IV Lasix 20 mg x2. Sodium osmolality low at 254, urine osmolality 285, urine sodium 105 TSH normal 2.56. Baseline serum sodium is not known. Hold HCTZ. Fluid restriction. 2D echo is getting done. Patient not on NSAIDs or antidepressant but SIADH may be a probability. Serum cortisol ordered for tomorrow AM. Overall patient feels better than yesterday. Urinary antigens for Legionella and strep was negative. #Generalized weakness and falls -Patient reports generalized weakness and falls with left extremity lower than right, on exam strength appeared equal but given her falls will get imaging of lower back to verify no abnormalities -CT of the cervical spine showed some mild ventral epidural soft tissue thickening at C2-C3 which may be degenerative from disc extrusion and migration although small epidural hematoma not excluded with history of trauma -Neurologically intact, can consider further or repeat imaging tomorrow pending status and level of concern -CT head with chronic involutional white matter changes -PT/OT #Diarrhea, spontaneously resolved: Patient had last bowel movement yesterday. She did not had bowel movement since. Enteric bacterial panel was ordered but not collected yet therefore isolation discontinued. Hold metformin. Probiotics ordered. - #Hypertension -Hold hctz -Continue losartan #Type 2 diabetes mellitus -Glucose checks and given her recent hypoglycemia we will hold sliding scale and hold her home metformin #DVT ppx: Lovenox subcu Charges/Coding Visit Charges Inpatient E&M: 57973 Subs Hosp L2
[2023-04-04 08:09] VITALS: BP 120/59; PULSE 80; RESP 16; TEMP 37.2; O2SAT 99
[2023-04-04] MEDS: Enoxaparin 40 MG/0.4 ML Syringe SC (08:13)
[2023-04-04] MEDS: Losartan Potassium 50 MG Tablet PO (08:13)
[2023-04-04] MEDS: Menthol/Lanolin/Calamine/Znox 113 GM Tube 1 APPLIC TOPICAL (08:14)
--- NOTE | 2023-04-04 08:57 | CON.PCM.RE_ITS ---
Assessment & Plan Assessment/Plan (1) Hyponatremia: PLAN: Plan This is a 83-year-old female with past medical history significant for hypertension and diabetes mellitus who was admitted to the emergency room after presenting with complaints of diarrhea and falls. Patient also reports appetite has been poor with some vomiting. Sodium in the emergency room 120. Patient did receive a dose of IV Lasix in the emergency room. Her sodium was checked about 8 hours later, sodium went to 117, at that time patient received another dose of Lasix 20 mg IV and her sodium this morning is now at 119. Patient does have mild hypervolemic hyponatremia. Echo pending today. Sodium osmolality slightly low at 254, urine sodium 105, urine osmolality 285. TSH is normal, 2.56. Patient is not on any antidepressants nor NSAIDs; no new medications. We will give lasix 20mg IV x1 now. For today we will continue to monitor frequent sodium checks with goal to try and avoid over correcting sodium too quickly. B aseline sodium is unknown. Recommend to continue with fluid restriction and holding hydrochlorothiazide. We will try to obtain labs from PCP to determine baseline sodium. Patient does not have any symptoms of hyponatremia including current nausea, no confusion or headaches, no visual changes. Patient reports she is hungry. Encouraged patient to try and increase solute intake. Further orders forthcoming as hospitalization evolves, thank you for allowing us participate in the care of Ms. Cash. HPI Consult Data Date of Consult: 04/04/23 HPI Narrative HPI Narrative: GRUPO CASH, is a 83 F with medical history significant for hypertension, diabetes mellitus type 2 who presented to the emergency room yesterday for evaluation of weakness and falls as well as 3 days of diarrhea. Work-up in the emergency room showed sodium of 120. Chest x-ray also showed mild inflammation or infection in the lungs with mild opacities bilateral lung mosher, patient was given IV antibiotics as well as dose of IV Lasix and admitted for further evaluation and treatment. We were consulted for hyponatremia. Patient reports she was seen by her PCP [facility] a week or so ago and was told that she needed to cut back on salt intake and increase water intake. She denies any recent fever or chills. Patient does report she was also nauseated with vomiting on Tuesday. Baseline sodium is unknown. [facility] Medical History (Updated 04/03/23 @ 14:[address] Majo Caballero MD) High cholesterol HTN (hypertension) Home Medications hydrochlorothiazide 12.5 mg tablet 12.5 mg PO DAILY 04/03/23 [History Last Taken Unknown] losartan 100 mg tablet 100 mg PO DAILY 04/03/23 [History Last Taken Unknown] metformin 1,000 mg tablet 1,000 mg PO BID 04/03/23 [History Last Taken Unknown] simvastatin 40 mg tablet 40 mg PO QHS 04/03/23 [History Last Taken Unknown] Allergy/AdvReac Type Severity Reaction Status Date / Time dapagliflozin [From [facility]] Allergy Hives Verified 04/03/23 10:21 ramipril [From [facility]] Allergy Other Verified 04/03/23 10:20 Surgical History (Updated 04/03/23 @ 12:41 by Shani Orantes RN) History of tubal ligation Hx of appendectomy Social History Smoking Status: Never smoker ROS ROS Narrative As per HPI Physical Exam Narrative Alert and oriented x3, no apparent distress Lung sounds clear anteriorly, diminished breath sounds posterior bases. No rales or rhonchi S1, S2, RRR Abdomen soft, nontender, positive bowel sounds 1-2+ pitting edema bilateral lower legs Lab / Micro Data Result Diagrams: 04/04/23 05:21 04/04/23 05:21 Labs: Laboratory Results - last 24 hr 04/03/23 10:45: Urine Color Yellow, Urine Clarity Clear, Urine pH 7.0, Ur Specific [place] 1.010, Urine Protein Negative, Urine Glucose (UA) 100 H, Urine Ketones Negative, Urine Occult Blood Negative, Urine Nitrite Negative, Urine Bilirubin Negative, Urine Urobilinogen Normal, Ur Leukocyte Esterase Negative, Urine RBC 0 SEEN, Urine WBC 0 SEEN, Ur Squamous Epith Cells 0 SEEN, Urine Bacteria 0 SEEN, Urine Mucus 0 SEEN 04/03/23 10:50: Total Bilirubin 0.40, Direct Bilirubin 0.14, AST 23, ALT 27, Alkaline Phosphatase 135 H, Total Protein 6.5, Albumin 2.6 L, Globulin 3.9 04/03/23 10:50: WBC 10.2, RBC 3.34 L, Hgb 10.3 L, Hct 30.8 L, MCV 92.2, MCH 30.8, MCHC 33.4, RDW Std Deviation 44.9 H, RDW Coeff of Dora 13.2, Plt Count 299, MPV 9.1, Immature Gran % (Auto) 0.900, Neut % (Auto) 76.2 H, Lymph % (Auto) 15.3 L, [place] % (Auto) 6.4, Eos % (Auto) 0.9, Baso % (Auto) 0.3, Absolute Neuts (auto) 7.8 H, Absolute Lymphs (auto) 1.55, Nucleated RBC % 0 04/03/23 10:50: Sodium 120 L, Potassium 4.1, Chloride 84 L, Carbon Dioxide 28.0, Anion Gap 8, BUN 17, Creatinine 0.83, Estim Creat Clear Calc 35.59, Est GFR (MDRD) Af Amer 84, Est GFR (MDRD) Non-Af 69, BUN/Creatinine Ratio 20.4 H, Glucose 184 H, Calcium 8.3 L, Troponin I High Sens 11, Lipase 60 04/03/23 10:50: B-Natriuretic Peptide 262.3 H 04/03/23 15:00: ESR 24 04/03/23 15:00: Sodium 118 L*, Potassium 4.3, Chloride 81 L, Carbon Dioxide 28.0, Anion Gap 9, BUN 15, Creatinine 0.87, Estim Creat Clear Calc 33.96, Est GFR (MDRD) Af Amer 79, Est GFR (MDRD) Non-Af 66, BUN/Creatinine Ratio 17.2, Glucose 239 H, Calcium 8.5, C-React Prot Ext Range 8.56 H, TSH 2.56, Free T4 1 .09 04/03/23 15:00: Serum Osmolality 254 L 04/03/23 15:00: Procalcitonin < 0.01 04/03/23 16:25: Urine Osmolality 285, Ur Random Sodium 105, Urine Creatinine < 13.00, Urine Potassium 18.0, Urine Chloride 120, Urine Urea Nitrogen 75 04/03/23 16:46: POC Glucose 204 H 04/03/23 18:35: Sodium 117 L*, Potassium 3.7, Chloride 80 L, Carbon Dioxide 27.0, Anion Gap 10, BUN 15, Creatinine 0.94, Estim Creat Clear Calc 31.43, Est GFR (MDRD) Af Amer 73, Est GFR (MDRD) Non-Af 61, BUN/Creatinine Ratio 16.0, Glucose 257 H, Calcium 8.1 L 04/03/23 22:13: POC Glucose 186 H 04/03/23 22:30: Sodium 119 L*, Potassium 3.6, Chloride 81 L, Carbon Dioxide 28.0, Anion Gap 10, BUN 14, Creatinine 0.86, Estim Creat Clear Calc 34.35, Est GFR (MDRD) Af Amer 81, Est GFR (MDRD) Non-Af 67, BUN/Creatinine Ratio 16.4, Glucose 172 H, Calcium 7.7 L 04/04/23 02:32: Sodium 119 L*, Potassium 3.5, Chloride 82 L, Carbon Dioxide 29.0, Anion Gap 8, BUN 13, Creatinine 0.80, Estim Creat Clear Calc 36.93, Est GFR (MDRD) Af Amer 87, Est GFR (MDRD) Non-Af 72, BUN/Creatinine Ratio 16.2, Glucose 134 H, Calcium 7.7 L 04/04/23 05:21: Sodium 119 L*, Potassium 3.4 L, Chloride 82 L, Carbon Dioxide 28.0, Anion Gap 9, BUN 13, Creatinine 0.76, Estim Creat Clear Calc 29.54, Est GFR (MDRD) Af Amer 93, Est GFR (MDRD) Non-Af 77, BUN/Creatinine Ratio 17.1, Glucose 120 H, Calcium 7.7 L 04/04/23 05:21: WBC 9.9, RBC 3.39 L, Hgb 10.3 L, Hct 30.3 L, MCV 89.4, MCH 30.4, MCHC 34.0, RDW Std Deviation 42.9, RDW Coeff of Dora 13.0, Plt Count 323, MPV 9.2, Immature Gran % (Auto) 1.000 H, Neut % (Auto) 69.3, Lymph % (Auto) 20.7, [place] % (Auto) 6.7, Eos % (Auto) 1.9, Baso % (Auto) 0.4, Absolute Neuts (auto) 6.9, Absolute Lymphs (auto) 2.05, Nucleated RBC % 0 04/04/23 06:45: POC Glucose 134 H Micro: Microbiology 04/03/23 16:25 Urine, Clean Catch Legionella Antigen - Final 04/03/23 16:25 Urine, Clean Catch Streptococcus pneumoniae Antigen (M - Final 04/03/23 10:45 Nasal Secretion SARS-CoV-2 & FLU Antigen (Rapid) - Final Radiology Impression Chest X-Ray 04/03/23 11:00 IMPRESSION: Mild inflammation or infection in the lungs with mild opacities in the left mid and bilateral lower lungs. Electronically Signed: Huyen Willis MD at 11:16 EDT , Brain CT 04/03/23 11:13 IMPRESSION: No acute intracranial process identified. Chronic involutional and white matter changes. Dehiscence of the right maxillary sinus floor from age-indeterminate trauma or infection. Electronically Signed: Huyen Willis MD at 12:03 EDT , Cervical Spine CT 04/03/23 11:13 IMPRESSION: No evidence for acute fracture or dislocation in the cervical spine. Multilevel degenerative disc disease. Mild ventral epidural soft tissue thickening at C2-3 which may be degenerative from disc extrusion and migration although small epidural hematoma not excluded with a history of trauma. Electronically Signed: Huyen Willis MD at 12:10 EDT , Abdomen/Pelvis CT 04/03/23 14:35 IMPRESSION: (NOT LISTED IN ORDER OF SIGNIFICANCE) Moderate bilateral hydronephroureter. No obstructing ureteral stones. There are multiple colonic diverticula consistent with diverticulosis. There are multiple gallstones. Other findings as above. Electronically Signed: Tyler Lozano MD at 19:48 EDT , Lumbar Spine CT 04/03/23 14:35 IMPRESSION: (NOT LISTED IN ORDER OF SIGNIFICANCE) Multilevel degenerative changes, as described above. L2-3: Mild left neural foraminal stenosis. Severe spinal stenosis. L3-4: Mild bilateral neural foraminal stenosis. Severe spinal stenosis. L4-5: Mild bilateral neural foraminal stenosis. There is a Grade 1 anterolisthesis of L4 on L5. Severe spinal stenosis. L5-S1: Mild bilateral neural foraminal stenosis. Electronically Signed: Tyler Lozano MD at 19:53 EDT ,
--- NOTE | 2023-04-04 10:05 | CASEMGMT ---
ALENA CHRIS COLLECTIONS CLERK CM to room to meet with patient for initial transition planning/care coordination assessment. ALENA CHRIS introduced self and role at [facility].? Pt voices understanding and consents to assessment at this time.? Pt sitting up in bed, eating breakfast, in no distress at this time.? Pt is A/O at this time and answers all questions appropriately.?? Care providers, pharmacy, and demographics verified/updated at this time. PCP: Dr Evans Specialists: none Preferred Pharmacy: [facility] Insurance: [employer] [facility] Prescription Benefit:? Yes Living Will/HPOA:? Pt states has both LW and HCPOA and that her dtr, Missy, is HCPOA. She was made aware they are not on file @ [facility]. She states they were done in [place]. Pt made aware these would not be applicable in [place]. She states would like to complete new ones. SW's, Renetta and Mariam, made aware. LNOK: Dtr, Missy. 4 other children. Living Arrangements: Lives w/dtr, Missy, son-in-law, and his grandchildren. Missy does not work, so it there w/pt all the time. They live in 2-story home w/3 steps to enter. FF. Pt reports the stairs have railing on both sides and her dtr assists her w/the stairs. Pt states dtr also assists her in/out of bathtub and w/washing her. Pt able to dress herself. Dtr does home mgmt tasks, meals/groceries, manages pt's meds and takes her to doctor appts. Transportation: dtr DME: ?States has the following DME:? shower chair, RTS, grab bars, rollator, W/C, functioning glucometer w/supplies, and lift chair. Pt states would like to get a new lift chair. ALENA CHRIS advised her to f/u with her PCP re: same. Pt states no need for further DME at this time.? HHC/SNF: No hx of either. Pt has had increased weaknes and falls @ home. Discussed discharge planning, including SNF, HHC, and OP therapy. Pt declines needing/wanting to go to a SNF, stating adamantly, I'm going home. She also declines wanting and HHC or OP therapy. She did state, though, if her dtr thinks it's a good idea for any of these options, that she would consider it. Pt wishes to return home and states has no concerns with going home at time of discharge.? Pt voices no further concerns/needs at this time.? Advised pt to ask for CM if any further questions/concerns/needs arise.? Voices understanding. PLAN: ?TBD. PT/OT evals pending. Ava JASMINEN RN CM
[2023-04-04] MEDS: 0.9% Saline Lock 10 ML Syringe IV (10:22)
[2023-04-04] MEDS: Furosemide 20 MG/2 ML VIAL IV (10:22)
[2023-04-04] MEDS: Insulin Lispro 100 UNIT/ML INSULN.PEN SC ×3 (11:00→21:18)
[2023-04-04 11:25] LABS: Bedside Glucose 280 mg/dL (74-106)
--- NOTE | 2023-04-04 12:50 | CASEMGMT ---
SW was informed patient is interested in completing Healthcare Power of Housing Manager (HCPOA). This BHARATHI and BHARATHI Mas met with patient. Introduced selves and role at [facility]. Patient confirmed she would like to do HCPOA. However, she wants to get back in bed first. Patient's call light was on. SW told patient SW will check back later. Renetta Garza MSW WEI
--- NOTE | 2023-04-04 13:23 | CASEMGMT ---
SW went back to complete HCPOA with patient, however she was sleeping. Renetta Garza MSW WIE
[2023-04-04 13:27] LABS: Sodium Level 118 mmol/L (136-145)
[2023-04-04 14:17] VITALS: BP 116/55; PULSE 79; RESP 16; TEMP 36.7; O2SAT 94
[2023-04-04] MEDS: Potassium Chloride Oral Tablet 20 MEQ 40 MEQ PO (14:20)
[2023-04-04 16:21] LABS: Bedside Glucose 279 mg/dL (74-106)
[2023-04-04 20:09] VITALS: BP 119/59; PULSE 75; RESP 18; TEMP 36.8; O2SAT 98
[2023-04-04 20:57] LABS: Sodium Level 119 mmol/L (136-145)
--- NOTE | 2023-04-04 21:01 | NURSING ---
This RN informed primary RN Reggie regarding critical lab result with sodium of 119. Zach CARVAJAL
[2023-04-04] MEDS: Atorvastatin Calcium 20 MG Tablet PO (21:18)
[2023-04-04 22:10] LABS: Bedside Glucose 214 mg/dL (74-106)
[2023-04-04 23:41] VITALS: BP 140/66; PULSE 84; RESP 18; O2SAT 100
[2023-04-05 03:10] VITALS: BMI 38.8
[2023-04-05 03:21] VITALS: BP 145/71; PULSE 84; RESP 18; TEMP 36.2; O2SAT 100
[2023-04-05 06:43] LABS: Absolute Lymphocyte Count 2.04 X10^3/uL (0.83-4.51); Absolute Neutrophil Count 6.8 X10^3/uL (2.0-7.7); Basophil# 0.02 X10^3/uL; Basophil% 0.2 % (0-1); Eosinophil# 0.13 X10^3/uL; Eosinophils% 1.3 % (0-5); Hematocrit 29.5 % (37-47); Hemoglobin 10.5 g/dL (12.0-15.0); Lymphocyte # 2.04 X10^3/ul (0.83-4.51); Lymphocyte % 20.8 % (19-41); Mean Corp Hgb Conc 35.6 g/dL (32-36); Mean Corpuscular Volume 89.9 fL (81-99); Mean Platelet Vol. 9.7 fl (6.2-12.0); Monocyte# 0.71 X10^3/uL; Monocyte% 7.2 % (0-10); NRBC Flagged by Analyzer 0 % (0-5); Neutrophil # 6.84 X10^3/uL (2.7-7.7); Neutrophil % 69.9 % (47-70); Platelet Count 323 K/mm3 (150-450); RBC Distribution Width CV 13.2 % (11.6-14.6); RBC Distribution Width SD 44.2 fl (35.1-43.9); Red Blood Count 3.28 M/mm3 (4.2-5.4); White Blood Count 9.8 K/mm3 (4.4-11.0)
[2023-04-05 07:18] LABS: BUN 12 mg/dL (7-18); Creatinine, Serum 0.78 mg/dL (0.55-1.02); Estimated Creatinine Clearance 29.54 ml/min; Glucose 166 mg/dL (74-106)
[2023-04-05 07:19] LABS: Anion Gap 7 (5-15); BUN/Creat Ratio 15.5 RATIO (10-20); Calcium,Total 7.9 mg/dL (8.5-10.1); Chloride 85 mmol/L (98-107); EST Glomerular Filtration Rate 75 mL/min (>60); Est Glom Filt Rate - Afr Amer 91 mL/min (>60); Potassium 3.9 mmol/L (3.5-5.1); Sodium Level 120 mmol/L (136-145)
[2023-04-05] MEDS: Insulin Lispro 100 UNIT/ML INSULN.PEN SC ×4 (08:20→23:25)
[2023-04-05] MEDS: Potassium Chloride Oral Tablet 20 MEQ 40 MEQ PO (08:21)
[2023-04-05 08:24] VITALS: BP 135/73; PULSE 86; RESP 18; TEMP 36.4
--- NOTE | 2023-04-05 08:45 | PCM.PN.HOSP ---
Reason for Visit Reason for Visit: Diagnoses Hypo-osmolality and hyponatremia (04/03/23) Essential (primary) hypertension (04/03/23) Subjective Subjective Follow-up for severe hyponatremia. Objective Data Objective Data Vital Signs: Vital Signs Temp Pulse Resp BP Pulse Ox O2 Del Method 97.5 F L 86 18 135/73 H 100 Room Air 04/05/23 08:24 04/05/23 08:24 04/05/23 08:24 04/05/23 08:24 04/05/23 03:21 04/05/23 08:24 Oxygen Delivery Method Room Air Weight: 197 lb 15.602 oz Body Mass Index (BMI) 38.8 Intake & Output: Intake and Output for Last 24 Hours 04/03/23 04/04/23 04/05/23 23:59 23:59 23:59 Intake Total 305 / 355 50 / 50 Output Total 300 / 1150 1125 / 1125 Balance 5 / -795 -1075 / -1075 Lab / Micro Data Result Diagrams: 04/05/23 06:15 04/05/23 06:15 Labs: Laboratory Results - last 24 hr 04/04/23 10:57: POC Glucose 280 H 04/04/23 12:15: Sodium 118 L* 04/04/23 15:52: POC Glucose 279 H 04/04/23 20:01: Sodium 119 L* 04/04/23 21:16: POC Glucose 214 H 04/05/23 06:15: Sodium 120 L, Potassium 3.9, Chloride 85 L, Carbon Dioxide 28.0, Anion Gap 7, BUN 12, Creatinine 0.78, Estim Creat Clear Calc 29.54, Est GFR (MDRD) Af Amer 91, Est GFR (MDRD) Non-Af 75, BUN/Creatinine Ratio 15.5, Glucose 166 H, Calcium 7.9 L 04/05/23 06:15: WBC 9.8, RBC 3.28 L, Hgb 10.5 L, Hct 29.5 L, MCV 89.9, MCH 32.0, MCHC 35.6, RDW Std Deviation 44.2 H, RDW Coeff of Dora 13.2, Plt Count 323, MPV 9.7, Immature Gran % (Auto) 0.600, Neut % (Auto) 69.9, Lymph % (Auto) 20.8, [place] % (Auto) 7.2, Eos % (Auto) 1.3, Baso % (Auto) 0.2, Absolute Neuts (auto) 6.8, Absolute Lymphs (auto) 2.04, Nucleated RBC % 0 Micro: Microbiology 04/03/23 16:25 Urine, Clean Catch Legionella Antigen - Final 04/03/23 16:25 Urine, Clean Catch Streptococcus pneumoniae Antigen (M - Final 04/03/23 10:45 Nasal Secretion SARS-CoV-2 & FLU Antigen (Rapid) - Final Radiography Diagnostic Testing: Radiology Impression Echocardiogram 04/03/23 14:35 Interpretation Summary Normal LV size. Left ventricular systolic function is hyperdynamic. The estimated ejection fraction is 70 %. Stage 1 diastolic dysfunction. Mild focal aortic valve calcification. Mean aortic valve gradient 20 mmHg. Moderate aortic stenosis. Ordering Physician: Majo Caballero Referring Physician: José Antonio Evans Performed By: [place], KELBY, RVT Physical Exam Narrative General: Alert, Oriented x3, Cooperative HEENT: Atraumatic, PERRLA, EOMI, Normocephalic Oral: Oral mucosa moist. No Gingival or Mucosal Lesions/ Ulcerations Neck: Supple, No JVD, Negative Carotid Bruits Lungs: Air entry diminished in bilateral lung bases. No crepitation/rhonchi Cardiovascular: Regular rate, Regular Rhythm, Normal S1, Normal S2, No murmurs Abdomen: Bowel Sounds Present, Soft, Non Tender, Non-Distended : No renal angle tenderness. No suprapubic tenderness. Extremities: Bilateral lower leg edema 2+. Below knee level edema. Musculoskeletal: ROM restricted. Bilateral knee arthritis. Muscle strength 5/5 at major joints of upper and lower extremities Neuro: No overt focal neurological deficits, cranial nerves II through XII intact, DTR 2+/4. No acute neurological deficit. Cerebellar signs of finger-nose and heel maciel test are negative Skin: No rash. No ulcer. Psych: Cooperative. Flat affect Assessment & Plan Assessment/Plan (1) Hyponatremia: (2) HTN (hypertension): PLAN: Plan 1. Hypotonic hypervolemic hyponatremia: Patient is admitted in PCU. Admitted with serum sodium 120, did not show increase in 24 hours therefore dope and fabric worker consulted. Patient had IV Lasix 20 mg x2. Sodium osmolality low at 254, urine osmolality 285, urine sodium 105 TSH normal 2.56. Baseline serum sodium is not known. Hold HCTZ. Fluid restriction. 2D echo is getting done. Patient not on NSAIDs or antidepressant but SIADH may be a probability. Serum cortisol ordered for tomorrow AM. Overall patient feels better than yesterday. Urinary antigens for Legionella and strep was negative. 04/05: Sodium is still low 120. Patient getting Lasix although does not have severe lower extremity edema or ascites. Continue Lasix 20 mg IV every 12 hourly. Patient is started on sodium tablet. Patient looking to go home. #Generalized weakness and falls -Patient reports generalized weakness and falls with left extremity lower than right, on exam strength appeared equal but given her falls will get imaging of lower back to verify no abnormalities -CT of the cervical spine showed some mild ventral epidural soft tissue thickening at C2-C3 which may be degenerative from disc extrusion and migration although small epidural hematoma not excluded with history of trauma -Neurologically intact, can consider further or repeat imaging tomorrow pending status and level of concern -CT head with chronic involutional white matter changes -PT/OT #Diarrhea, spontaneously resolved: Patient had last bowel movement yesterday. She did not had bowel movement since. Enteric bacterial panel was ordered but not collected yet therefore isolation discontinued. Hold metformin. Probiotics ordered. -04/05: No diarrhea or external loss of fluid. #Hypertension -Hold hctz -Continue losartan #Type 2 diabetes mellitus -Glucose checks and given her recent hypoglycemia we will hold sliding scale and hold her home metformin #DVT ppx: Lovenox subcu Charges/Coding Visit Charges Inpatient E&M: 88487 Subs Hosp L2
--- NOTE | 2023-04-05 10:35 | PN.RENAL_ITS ---
Subjective Subjective Patient is resting quietly. Denies any complaints. States appetite good in hospital. No nausea. Objective Data Objective Data Vital Signs: Vital Signs Temp Pulse Resp BP Pulse Ox O2 Del Method 97.5 F L 86 18 135/73 H 100 Room Air 04/05/23 08:24 04/05/23 08:24 04/05/23 08:24 04/05/23 08:24 04/05/23 03:21 04/05/23 08:24 Oxygen Delivery Method Room Air Weight: 89.8 kg Body Mass Index (BMI) 38.8 Intake & Output: Intake and Output for Last 24 Hours 04/03/23 04/04/23 04/05/23 23:59 23:59 23:59 Intake Total 305 / 355 50 / 50 Output Total 300 / 1150 1125 / 1125 Balance 5 / -795 -1075 / -1075 Lab / Micro Data Result Diagrams: 04/05/23 06:15 04/05/23 06:15 Labs: Laboratory Results - last 24 hr 04/04/23 10:57: POC Glucose 280 H 04/04/23 12:15: Sodium 118 L* 04/04/23 15:52: POC Glucose 279 H 04/04/23 20:01: Sodium 119 L* 04/04/23 21:16: POC Glucose 214 H 04/05/23 06:15: Sodium 120 L, Potassium 3.9, Chloride 85 L, Carbon Dioxide 28.0, Anion Gap 7, BUN 12, Creatinine 0.78, Estim Creat Clear Calc 29.54, Est GFR (MDRD) Af Amer 91, Est GFR (MDRD) Non-Af 75, BUN/Creatinine Ratio 15.5, Glucose 166 H, Calcium 7.9 L 04/05/23 06:15: WBC 9.8, RBC 3.28 L, Hgb 10.5 L, Hct 29.5 L, MCV 89.9, MCH 32.0, MCHC 35.6, RDW Std Deviation 44.2 H, RDW Coeff of [place]ora 13.2, Plt Count 323, MPV 9.7, Immature Gran % (Auto) 0.600, Neut % (Auto) 69.9, Lymph % (Auto) 20.8, [place] % (Auto) 7.2, Eos % (Auto) 1.3, Baso % (Auto) 0.2, Absolute Neuts (auto) 6.8, Absolute Lymphs (auto) 2.04, Nucleated RBC % 0 Micro: Microbiology 04/03/23 16:25 Urine, Clean Catch Legionella Antigen - Final 04/03/23 16:25 Urine, Clean Catch Streptococcus pneumoniae Antigen (M - Final 04/03/23 10:45 Nasal Secretion SARS-CoV-2 & FLU Antigen (Rapid) - Final Radiography Diagnostic Testing: Radiology Impression Echocardiogram 04/03/23 14:35 Interpretation Summary Normal LV size. Left ventricular systolic function is hyperdynamic. The estimated ejection fraction is 70 %. Stage 1 diastolic dysfunction. Mild focal aortic valve calcification. Mean aortic valve gradient 20 mmHg. Moderate aortic stenosis. Ordering Physician: Majo Caballero Referring Physician: José Antonio Evans Performed By: [place], RDCS, RVT Physical Exam Narrative Alert and oriented x3, no apparent distress Lung sounds clear anteriorly, diminished breath sounds posterior bases. No rales or rhonchi S1, S2, RRR Abdomen soft, nontender, positive bowel sounds 1-2+ pitting edema bilateral lower legs Assessment & Plan Assessment/Plan (1) Hyponatremia: PLAN: Plan This is a 83-year-old female with past medical history significant for hypertension and diabetes mellitus who was admitted to the emergency room after presenting with complaints of diarrhea and falls. -Acute on chronic hyponatremia; sodium in the emergency room 120. Received of IV Lasix in the emergency room, sodium was checked about 8 hours later, sodium went to 117, at that time patient received another dose of Lasix 20 mg IV and her sodium improved to 119. Echo showed EF 70%, stage 1 diastolic dysfunction. Sodium osmolality slightly low at 254, urine sodium 105, urine osmolality 285. TSH is normal, 2.56. Patient is not on any antidepressants nor NSAIDs; no new medications. Likely patient drinking too much fluids before hospitalization. Reviewed this with her today. Continue on fluid restriction. Also discussed fluid restriction once at home. We will give Lasix 1 dose again today. Continue off HCTZ. - We were able to obtain labs from PCP: March 25, 2023 sodium 131, 08/06/2022 sodium 135. Recommend to continue with fluid restriction, 1 L/day. Patient does not have any symptoms of hyponatremia including current nausea, no confusion or headaches, no visual changes. - If sodium is better tomorrow, patient okay for discharge to home per nephrology standpoint. Patient does not need serial sodium lab work ordered for today. BMP ordered for am. - discussed plan with Dr. Lindsey
[2023-04-05] MEDS: Enoxaparin 40 MG/0.4 ML Syringe SC (12:05)
[2023-04-05] MEDS: Losartan Potassium 50 MG Tablet PO (12:05)
[2023-04-05] MEDS: Menthol/Lanolin/Calamine/Znox 113 GM Tube 1 APPLIC TOPICAL ×2 (12:06→23:26)
[2023-04-05] MEDS: 0.9% Saline Lock 10 ML Syringe IV ×2 (14:36→18:40)
[2023-04-05] MEDS: Furosemide 20 MG/2 ML VIAL IV ×2 (14:36→18:40)
[2023-04-05 15:00] LABS: Bedside Glucose 212 mg/dL (74-106)
[2023-04-05 15:00] LABS: Bedside Glucose 190 mg/dL (74-106)
[2023-04-05 15:35] VITALS: BP 151/64; PULSE 87; RESP 18; TEMP 36.3; O2SAT 98
[2023-04-05] MEDS: Sodium Chloride 1 GM Tablet 2 GM PO ×2 (17:22→23:25)
[2023-04-05 19:11] LABS: Bedside Glucose 251 mg/dL (74-106)
[2023-04-05 20:04] VITALS: BP 130/56; PULSE 78; RESP 17; TEMP 36.1; O2SAT 98
[2023-04-05] MEDS: Atorvastatin Calcium 20 MG Tablet PO (23:25)
[2023-04-05 23:42] VITALS: BP 124/80; PULSE 75; RESP 18; O2SAT 97
[2023-04-06 03:26] LABS: Bedside Glucose 183 mg/dL (74-106)
[2023-04-06 04:06] VITALS: BP 129/53; PULSE 75; RESP 18; O2SAT 95
[2023-04-06 05:38] VITALS: BMI 34.5
[2023-04-06 05:52] LABS: Absolute Lymphocyte Count 2.17 X10^3/uL (0.83-4.51); Absolute Neutrophil Count 6.4 X10^3/uL (2.0-7.7); Basophil# 0.04 X10^3/uL; Basophil% 0.4 % (0-1); Hematocrit 30.2 % (37-47); Hemoglobin 10.2 g/dL (12.0-15.0); Lymphocyte # 2.17 X10^3/ul (0.83-4.51); Mean Corp Hgb Conc 33.8 g/dL (32-36); Mean Corpuscular Hgb 30.7 pg (27.0-32.0); Mean Platelet Vol. 9.1 fl (6.2-12.0); Monocyte# 0.92 X10^3/uL; Monocyte% 9.3 % (0-10); NRBC Flagged by Analyzer 0 % (0-5); Neutrophil # 6.42 X10^3/uL (2.7-7.7); Neutrophil % 65.3 % (47-70); Platelet Count 325 K/mm3 (150-450); RBC Distribution Width CV 13.4 % (11.6-14.6); RBC Distribution Width SD 44.1 fl (35.1-43.9); Red Blood Count 3.32 M/mm3 (4.2-5.4); White Blood Count 9.9 K/mm3 (4.4-11.0)
[2023-04-06] MEDS: Sodium Chloride 1 GM Tablet 2 GM PO ×2 (06:21→13:25)
[2023-04-06 06:43] LABS: Anion Gap 8 (5-15); BUN 13 mg/dL (7-18); BUN/Creat Ratio 18.9 RATIO (10-20); Calcium,Total 7.9 mg/dL (8.5-10.1); Chloride 86 mmol/L (98-107); Creatinine, Serum 0.69 mg/dL (0.55-1.02); EST Glomerular Filtration Rate 86 mL/min (>60); Est Glom Filt Rate - Afr Amer 104 mL/min (>60); Estimated Creatinine Clearance 29.54 ml/min; Glucose 173 mg/dL (74-106); Potassium 3.8 mmol/L (3.5-5.1); Sodium Level 122 mmol/L (136-145)
[2023-04-06 07:50] LABS: Bedside Glucose 195 mg/dL (74-106)
[2023-04-06] MEDS: Insulin Lispro 100 UNIT/ML INSULN.PEN SC ×2 (08:06→11:14)
[2023-04-06] MEDS: Potassium Chloride Oral Tablet 20 MEQ 40 MEQ PO (08:07)
[2023-04-06 09:06] VITALS: BP 111/68; PULSE 77; RESP 17; TEMP 36.6; O2SAT 99
[2023-04-06] MEDS: Menthol/Lanolin/Calamine/Znox 113 GM Tube 1 APPLIC TOPICAL (09:11)
[2023-04-06] MEDS: Losartan Potassium 50 MG Tablet PO (09:11)
[2023-04-06] MEDS: Enoxaparin 40 MG/0.4 ML Syringe SC (09:11)
--- NOTE | 2023-04-06 09:41 | PCM.DC ---
Discharge Instructions Diet Discharge Diet: 6 Cup Fluid Restriction Activity Discharge Activity: Return to Normal Activity Weight Bearing Status: Weight bearing as tolerated Dressing / Incision Call your doctor if you observe: Fever of 101 or Higher, Coldness, Increased Pain, Numbness or Tingling, Change in Color, Inability to urinate, Inability to have a bowel movement, Using more than 1 pad per hour, Shortness of breath, Dizziness, Fainting spells, Swelling in the ankles, Chest pain, Prolonged hiccupping, Increased palpitations (irregular heartbeat) and Calf discomfort Follow Up Care When: IN 2 WEEKS Test Results: Test results from this visit will be discussed in further detail at your follow-up appointment, if applicable. Discharge Plan Admission Admit Date/Time: 04/03/23 13:34 Attending Provider: Rafael Lindsey Primary Care Provider: José Antonio Evans Consulting Providers: Majo Caballero ; Kasey Peñaloza Instructions Additional Instructions / Restrictions: BMP in 1 week and follow-up with retail store assistant. Discharge Orders/Prescriptions Prescriptions: New potassium chloride [Klor-Con M20] 20 mEq Tablet,Er Particles/Crystals 40 meq PO DAILYCM 30 Days Qty: 60 0RF sodium chloride 1,000 mg Tablet,Soluble 2 g PO TID 4 Days Qty: 24 0RF furosemide 40 mg tablet 40 mg PO DAILY 30 Days Qty: 30 0RF sennosides-docusate sodium [Stool Softener-Stimulant Laxat] 8.6-50 mg Tablet 2 tab PO BID PRN PRN (Reason: Constipation) Qty: 0 0RF Continued simvastatin 40 mg tablet 40 mg PO QHS losartan 100 mg tablet 100 mg PO DAILY Held metformin 1,000 mg tablet 1,000 mg PO BID Hold Instructions: Hold for 1 week. Discontinued hydrochlorothiazide 12.5 mg tablet 12.5 mg PO DAILY Referrals / Follow Up: Donaldo Diaz MD [Non-Staff] - Within 1 Week Kasey Peñaloza MD [Med Staff - Consulting] - Within 1 Week (For hyponatremia follow with BMP.) José Antonio Evans DO [Primary Care Provider] - Disposition Disposition (needs filled in before D/C Order can be placed): Home Health Service
--- NOTE | 2023-04-06 09:45 | PCM.DC.SUM ---
Providers Date of Admission: 04/03/23 Date of Discharge: 04/06/23 Primary Care Physician: Dr. José Antonio Evans, DO Consultations 04/04/23 08:01 Consult: Nephrology Routine Consulting Provider: Kasey Peñaloza Reason for Consult: Hyponatremia EMERGENT Consult: No MD Notified: Yes Date Notified: 04/04/23 Time Notified: 08:02 Method of Notification: Text Reason For Visit: SEVERE HYPONATREMIA Diagnosis Discharge Diagnosis (1) Hyponatremia: Status: Acute Code(s): E87.1 - Hypo-osmolality and hyponatremia (2) HTN (hypertension): Status: Chronic Code(s): I10 - Essential (primary) hypertension Plan 1. Hypotonic hypervolemic hyponatremia: Patient is admitted in PCU. Admitted with serum sodium 120, did not show increase in 24 hours therefore tanker serviceman consulted. Patient had IV Lasix 20 mg x2. Sodium osmolality low at 254, urine osmolality 285, urine sodium 105 TSH normal 2.56. Baseline serum sodium is not known. Hold HCTZ. Fluid restriction. 2D echo is getting done. Patient not on NSAIDs or antidepressant but SIADH may be a probability. Serum cortisol ordered for tomorrow AM. Overall patient feels better than yesterday. Urinary antigens for Legionella and strep was negative. 04/05: Sodium is still low 120. Patient getting Lasix although does not have severe lower extremity edema or ascites. Continue Lasix 20 mg IV every 12 hourly. Patient is started on sodium tablet. Patient looking to go home. 04/06: Serum sodium increased to 122. Mild hypokalemia corrected. Patient is discharged on furosemide 40 mg daily, sodium tablet and potassium tablet. Advised follow-up BMP in 1 week with tanker serviceman Dr. Peñaloza #Generalized weakness and falls -Patient reports generalized weakness and falls with left extremity lower than right, on exam strength appeared equal but given her falls will get imaging of lower back to verify no abnormalities -CT of the cervical spine showed some mild ventral epidural soft tissue thickening at C2-C3 which may be degenerative from disc extrusion and migration although small epidural hematoma not excluded with history of trauma -Neurologically intact, can consider further or repeat imaging tomorrow pending status and level of concern -CT head with chronic involutional white matter changes -04/06: Patient was evaluated PT and OT and deemed okay for discharge with home health. #Diarrhea, spontaneously resolved: Patient had last bowel movement yesterday. She did not had bowel movement since. Enteric bacterial panel was ordered but not collected yet therefore isolation discontinued. Hold metformin. Probiotics ordered. -04/05: No diarrhea or external loss of fluid. 04/06 diarrhea resolved. #Hypertension -HCTZ was discontinued at time of discharge. -Continue losartan #Type 2 diabetes mellitus -Glucose checks and given her recent hypoglycemia we will hold sliding scale and hold her home metformin #DVT ppx: Lovenox subcu Discharge medication reconciliation done. Discharge follow-up instructions completed. Discharge process discussed with the patient and all questions were answered to patient's satisfaction. Total time spent, exact 35 minutes on discharge meds reconciliation, examination, coordination of care with nurses and ancillary staff, review of imaging and blood test and discussion with the patient on follow-up instructions. Microbiology Past 72 Hours 04/03/23 16:25 Urine, Clean Catch Legionella Antigen - Final 04/03/23 16:25 Urine, Clean Catch Streptococcus pneumoniae Antigen (M - Final Laboratory Results 04/05/23 17:26: POC Glucose 251 H 04/05/23 23:24: POC Glucose 183 H 04/06/23 05:27: Sodium 122 L, Potassium 3.8, Chloride 86 L, Carbon Dioxide 28.0, Anion Gap 8, BUN 13, Creatinine 0.69, Estim Creat Clear Calc 29.54, Est GFR (MDRD) Af Amer 104, Est GFR (MDRD) Non-Af 86, BUN/Creatinine Ratio 18.9, Glucose 173 H, Calcium 7.9 L 04/06/23 05:27: WBC 9.9, RBC 3.32 L, Hgb 10.2 L, Hct 30.2 L, MCV 91.0, MCH 30.7, MCHC 33.8 D, RDW Std Deviation 44.1 H, RDW Coeff of Dora 13.4, Plt Count 325, MPV 9.1, Immature Gran % (Auto) 1.000 H, Neut % (Auto) 65.3, Lymph % (Auto) 22.0, Pettis % (Auto) 9.3, Eos % (Auto) 2.0, Baso % (Auto) 0.4, Absolute Neuts (auto) 6.4, Absolute Lymphs (auto) 2.17, Nucleated RBC % 0 04/06/23 07:28: POC Glucose 195 H 04/06/23 11:13: POC Glucose 192 H Medications at Discharge Home Medications losartan 100 mg tablet 100 mg PO DAILY 04/03/23 metformin 1,000 mg tablet 1,000 mg PO BID 04/03/23 simvastatin 40 mg tablet 40 mg PO QHS 04/03/23 furosemide 40 mg tablet 40 mg PO DAILY 30 days #30 tabs 04/06/23 potassium chloride 20 mEq tablet,extended release(part/cryst) (Klor-Con M) 40 meq PO DAILYCM 30 days #60 tabs 04/06/23 sennosides 8.6 mg-docusate sodium 50 mg tablet (Stool Softener-Stimulant Laxative) 2 tab PO BID PRN PRN Constipation #0 tabs 04/06/23 sodium chloride 1,000 mg soluble tablet 2 g PO TID 4 days #24 tabs 04/06/23 Physical Exam Narrative Seen and examined. No acute pain. Serum sodium increased. No shortness of breath. Physical exam General: Alert, Oriented x3, Cooperative HEENT: Atraumatic, PERRLA, EOMI, Normocephalic Oral: Oral mucosa moist.? No Gingival or Mucosal Lesions/ Ulcerations Neck: Supple, No JVD, Negative Carotid Bruits Lungs:? Air entry diminished in bilateral lung bases.? No crepitation/rhonchi Cardiovascular: Regular rate, Regular Rhythm, Normal S1, Normal S2, No murmurs Abdomen: Bowel Sounds Present, Soft, Non Tender, Non-Distended : No renal angle tenderness.? No suprapubic tenderness. Extremities: Bilateral lower leg edema 2+.? Below knee level edema. Musculoskeletal: ROM restricted.? Bilateral knee arthritis.? Muscle strength 5/5 at major joints of upper and lower extremities Neuro: No overt focal neurological deficits, cranial nerves II through XII intact, DTR 2+/4.? No acute neurological deficit.? Skin: No rash.? No ulcer. Psych: Cooperative.? Flat affect Weight / BMI Weight Weight: 176 lb 2.389 oz Body Mass Index (BMI) 34.5 ABG / Lab / Microbiology Data Result Diagrams: 04/06/23 05:27 04/06/23 05:27 Laboratory: Laboratory Results - last 24 hr 04/05/23 08:17: POC Glucose 212 H 04/05/23 12:01: POC Glucose 190 H 04/05/23 17:26: POC Glucose 251 H 04/05/23 23:24: POC Glucose 183 H 04/06/23 05:27: Sodium 122 L, Potassium 3.8, Chloride 86 L, Carbon Dioxide 28.0, Anion Gap 8, BUN 13, Creatinine 0.69, Estim Creat Clear Calc 29.54, Est GFR (MDRD) Af Amer 104, Est GFR (MDRD) Non-Af 86, BUN/Creatinine Ratio 18.9, Glucose 173 H, Calcium 7.9 L 04/06/23 05:27: WBC 9.9, RBC 3.32 L, Hgb 10.2 L, Hct 30.2 L, MCV 91.0, MCH 30.7, MCHC 33.8 D, RDW Std Deviation 44.1 H, RDW Coeff of Dora 13.4, Plt Count 325, MPV 9.1, Immature Gran % (Auto) 1.000 H, Neut % (Auto) 65.3, Lymph % (Auto) 22.0, Pettis % (Auto) 9.3, Eos % (Auto) 2.0, Baso % (Auto) 0.4, Absolute Neuts (auto) 6.4, Absolute Lymphs (auto) 2.17, Nucleated RBC % 0 04/06/23 07:28: POC Glucose 195 H Microbiology: Microbiology 04/03/23 16:25 Urine, Clean Catch Legionella Antigen - Final 04/03/23 16:25 Urine, Clean Catch Streptococcus pneumoniae Antigen (M - Final 04/03/23 10:45 Nasal Secretion SARS-CoV-2 & FLU Antigen (Rapid) - Final Meaningful Use Info Meaningful Use Diagnoses (Choose all that apply): None applicable Discharge Plan Admission Admit Date/Time: 04/03/23 13:34 Attending Provider: Rafael Lindsey Primary Care Provider: José Antonio Evans Consulting Providers: Majo Caballero ; Kasey Peñaloza Instructions Additional Instructions / Restrictions: BMP in 1 week and follow-up with tanker serviceman. Discharge Orders/Prescriptions Prescriptions: New potassium chloride [Klor-Con M20] 20 mEq Tablet,Er Particles/Crystals 40 meq PO DAILYCM 30 Days Qty: 60 0RF sodium chloride 1,000 mg Tablet,Soluble 2 g PO TID 4 Days Qty: 24 0RF furosemide 40 mg tablet 40 mg PO DAILY 30 Days Qty: 30 0RF sennosides-docusate sodium [Stool Softener-Stimulant Laxat] 8.6-50 mg Tablet 2 tab PO BID PRN PRN (Reason: Constipation) Qty: 0 0RF Continued simvastatin 40 mg tablet 40 mg PO QHS losartan 100 mg tablet 100 mg PO DAILY Held metformin 1,000 mg tablet 1,000 mg PO BID Hold Instructions: Hold for 1 week. Discontinued hydrochlorothiazide 12.5 mg tablet 12.5 mg PO DAILY Referrals / Follow Up: Donaldo Diaz MD [Non-Staff] - Within 1 Week Kasey Peñaloza MD [Med Staff - Consulting] - Within 1 Week (For hyponatremia follow with BMP.) José Antonio Evans DO [Primary Care Provider] - Disposition Disposition (needs filled in before D/C Order can be placed): Home Health Service Charges/Coding Visit Charges Inpatient E&M: 82908 Disch Hosp >30min
--- NOTE | 2023-04-06 10:03 | CASEMGMT ---
Discharge Planning SNF and HH list created for patient. Give to SW. Maritza Hoang
--- NOTE | 2023-04-06 10:14 | PHA.DC.MC ---
Pharmacy Service has performed discharge medication reconciliation and counseling for this patient. 1. FUROSEMIDE 40MG PO DAILY 2. POTASSIUM CHLORIDE 40MEQ PO DAILYCM 3. SODIUM CHLORIDE 2GM PO TID The patient's discharge medication list was reviewed for discrepancies and discrepancies were resolved. Home Medications losartan 100 mg tablet 100 mg PO DAILY 04/03/23 metformin 1,000 mg tablet 1,000 mg PO BID 04/03/23 simvastatin 40 mg tablet 40 mg PO QHS 04/03/23 furosemide 40 mg tablet 40 mg PO DAILY 30 days #30 tabs 04/06/23 potassium chloride 20 mEq tablet,extended release(part/cryst) (Klor-Con M) 40 meq PO DAILYCM 30 days #60 tabs 04/06/23 sodium chloride 1,000 mg soluble tablet 2 g PO TID 4 days #24 tabs 04/06/23 The patient was counseled on the following discharge medications and changes in medications for homegoing were reviewed. The Reason for Use, instructions for use, and potential side effects were reviewed for all new medications. The patient's questions regarding all of their medications were answered. The patient was able to verbally demonstrate an understanding of their discharge medications.
[2023-04-06 10:47] VITALS: O2SAT 99
--- NOTE | 2023-04-06 10:48 | PCM.PN.REN ---
Subjective Subjective Sitting up in bed. No complaints. No overnight events. Hoping to go home today. Objective Data Objective Data Vital Signs: Vital Signs Temp Pulse Resp BP Pulse Ox O2 Del Method 97.8 F 77 17 111/68 99 Room Air 04/06/23 09:06 04/06/23 09:06 04/06/23 09:06 04/06/23 09:06 04/06/23 09:06 04/06/23 09:06 Oxygen Delivery Method Room Air Weight: 79.9 kg Body Mass Index (BMI) 34.5 Intake & Output: Intake and Output for Last 24 Hours 04/04/23 04/05/23 04/06/23 23:59 23:59 23:59 Intake Total 50 / 50 440 / 440 Output Total 1125 / 1125 500 / 500 Balance -1075 / -1075 -60 / -60 Lab / Micro Data Result Diagrams: 04/06/23 05:27 04/06/23 05:27 Labs: Laboratory Results - last 24 hr 04/05/23 08:17: POC Glucose 212 H 04/05/23 12:01: POC Glucose 190 H 04/05/23 17:26: POC Glucose 251 H 04/05/23 23:24: POC Glucose 183 H 04/06/23 05:27: Sodium 122 L, Potassium 3.8, Chloride 86 L, Carbon Dioxide 28.0, Anion Gap 8, BUN 13, Creatinine 0.69, Estim Creat Clear Calc 29.54, Est GFR (MDRD) Af Amer 104, Est GFR (MDRD) Non-Af 86, BUN/Creatinine Ratio 18.9, Glucose 173 H, Calcium 7.9 L 04/06/23 05:27: WBC 9.9, RBC 3.32 L, Hgb 10.2 L, Hct 30.2 L, MCV 91.0, MCH 30.7, MCHC 33.8 D, RDW Std Deviation 44.1 H, RDW Coeff of Dora 13.4, Plt Count 325, MPV 9.1, Immature Gran % (Auto) 1.000 H, Neut % (Auto) 65.3, Lymph % (Auto) 22.0, Bartholomew % (Auto) 9.3, Eos % (Auto) 2.0, Baso % (Auto) 0.4, Absolute Neuts (auto) 6.4, Absolute Lymphs (auto) 2.17, Nucleated RBC % 0 04/06/23 07:28: POC Glucose 195 H Micro: Microbiology 04/03/23 16:25 Urine, Clean Catch Legionella Antigen - Final 04/03/23 16:25 Urine, Clean Catch Streptococcus pneumoniae Antigen (M - Final 04/03/23 10:45 Nasal Secretion SARS-CoV-2 & FLU Antigen (Rapid) - Final Physical Exam Narrative Alert and oriented x3, no apparent distress Lung sounds clear anteriorly, diminished breath sounds posterior bases. No rales or rhonchi S1, S2, RRR Abdomen soft, nontender, positive bowel sounds 1-2+ pitting edema bilateral lower legs Assessment & Plan Assessment/Plan (1) Hyponatremia: PLAN: Plan This is a 83-year-old female with past medical history significant for hypertension and diabetes mellitus who was admitted to the emergency room after presenting with complaints of diarrhea and falls. Nephrology consulted for hyponatremia. -Acute on chronic hyponatremia; sodium in the emergency room 120. Received of IV Lasix in the emergency room, sodium was checked about 8 hours later, sodium went to 117, at that time patient received another dose of Lasix 20 mg IV and her sodium improved to 119. Echo showed EF 70%, stage 1 diastolic dysfunction. Sodium osmolality slightly low at 254, urine sodium 105, urine osmolality 285. TSH is normal, 2.56. Patient is not on any antidepressants nor NSAIDs; no new medications. Likely patient drinking too much fluids before hospitalization along with taking hydrochlorothiazide. Reviewed this with her again today. Patient has been on fluid restriction in hospital. Recommended to patient once at home also to continue fluid restriction between 1 to no more than 1.5 L/day. Continue off HCTZ. Sodium up to 122 today. - We were able to obtain labs from PCP: March 25, 2023 sodium 131, 08/06/2022 sodium 135. Recommend to continue with fluid restriction. Patient does not have any symptoms of hyponatremia including current nausea, no confusion or headaches, no visual changes. -Slight improvement in serum sodium today therefore okay for discharge to home per nephrology standpoint. Continue off hydrochlorothiazide. Patient to go home on furosemide. Will arrange for hospital follow-up. - discussed plan with Dr. Lindsey
--- NOTE | 2023-04-06 11:18 | CASEMGMT ---
Patient's daughter Missy called RN and was asking about d/c plan. SW spoke with therapy after they saw patient today and therapy feels patient would be okay returning home with home health. SW called Missy and let her know this information. Missy asked what she needs to do. BHARATHI explained that SW will leave a list of home health agencies in the room and she and patient will need to pick at least 3 agencies. SW will then work on making referrals. Missy said she will be in around 1p. SW went to patient's room and let patient know therapy's recommendations. SW also let patient know SW spoke with her daughter and she is in agreement with home health. SW left a list of?home health?providers including quality and resource use data and consistent with patient?s preferred geographic region, medical needs, and insurance network were provided from the [employer] Guide in patient's room. BHARATHI will check back once patient daughter arrives. Plan: d/c with home health Renetta CARVAJAL
[2023-04-06 11:35] LABS: Bedside Glucose 192 mg/dL (74-106)
[2023-04-06 12:01] VITALS: O2SAT 99
[2023-04-06 13:23] VITALS: BP 127/58; PULSE 85; RESP 16; RESP 17; TEMP 36.6; O2SAT 100
[2023-04-06] MEDS: Meclizine HCl 25 MG Tablet PO (13:25)
--- NOTE | 2023-04-06 13:39 | CASEMGMT ---
Patient's daughter arrived at [facility]. SW went back to patient's room. They circled 3 choices. SW let them know SW will work on referrals. SW asked d/c strategic planning director Maritza to please send referrals to patient's 3 choices. Renetta CARVAJAL
--- NOTE | 2023-04-06 13:45 | CASEMGMT ---
Discharge Planning HH referral sent via [facility] to [facility], Deirdre , and [facility] . Maritza Harper
--- NOTE | 2023-04-06 13:56 | CASEMGMT ---
Discharge Planning [facility] and [facility] declined. SW notified. Maritza Hoang
--- NOTE | 2023-04-06 14:19 | CASEMGMT ---
Discharge Planning [facility] are able to accommodate services. Discharge date given and SW notified. Maritza Hoang
--- NOTE | 2023-04-06 14:25 | CASEMGMT ---
SW let patient and her daughter Missy know that [facility] is able to see her. They will be out in the next 24-48hrs. Someone will contact them to set up a time. Plan: d/c to home with daughter Missy with [facility]. Renetta CARVAJAL
--- NOTE | 2023-04-06 14:56 | CASEMGMT ---
Discharge Planning HH order sent to [facility] via [facility]. Maritza Hoang
== END 2023-04-06 14:39 | disposition home health service (06) | DRG 641 ==
LOC: ED 11:04 → MS3 13:33 → PCU 13:36
PROVIDERS: Nurse Practitioner Adult Health; Admitting Provider Internal Medicine; Emergency Provider Emergency Medicine; Visit Provider Internal Medicine
DX: E87.1 Hypo-osmolality and hyponatremia (principal); E11.9 Type 2 diabetes mellitus without complications; E87.70 Fluid overload, unspecified; E78.00 Pure hypercholesterolemia, unspecified; I10 Essential (primary) hypertension; E87.6 Hypokalemia; R19.7 Diarrhea, unspecified; R29.6 Repeated falls; Z20.822 Contact with and (suspected) exposure to COVID-19; Z79.84 Long term (current) use of oral hypoglycemic drugs; Z79.899 Other long term (current) drug therapy
CPT/HCPCS: 36415; 70450; 71046; 72125; 72131; 74176; 80048; 80076; 81001; 82436; 82570; 82962; 83690; 83880; 83930; 83935; 84133; 84145; 84295; 84300; 84439; 84443; 84484; 84540; 85025; 85652; 86140; 87428; 87449; 93005; 93306; 97110; 97162; 97166; 97530; 97535; 97802; 99285; A4216; J1940; J2405

== ENCOUNTER → 2023-04-19 | Outpatient (CLI) | payer MEDICARE, MEDICAID, SELFPAY ==
[2023-04-19 16:13] LABS: Hematocrit 30.7 % (37-47); Hemoglobin 10.2 g/dL (12.0-15.0); Mean Corp Hgb Conc 33.2 g/dL (32-36); Mean Corpuscular Hgb 31.5 pg (27.0-32.0); Mean Corpuscular Volume 94.8 fL (81-99); Mean Platelet Vol. 10.1 fl (6.2-12.0); Platelet Count 345 K/mm3 (150-450); RBC Distribution Width CV 14.2 % (11.6-14.6); RBC Distribution Width SD 48.9 fl (35.1-43.9); Red Blood Count 3.24 M/mm3 (4.2-5.4); White Blood Count 8.5 K/mm3 (4.4-11.0)
[2023-04-19 16:25] LABS: Anion Gap 10 (5-15); BUN 32 mg/dL (7-18); BUN/Creat Ratio 24.8 RATIO (10-20); Calcium,Total 8.9 mg/dL (8.5-10.1); Chloride 97 mmol/L (98-107); Creatinine, Serum 1.29 mg/dL (0.55-1.02); EST Glomerular Filtration Rate 42 mL/min (>60); Est Glom Filt Rate - Afr Amer 51 mL/min (>60); Glucose 210 mg/dL (74-106); Potassium 4.9 mmol/L (3.5-5.1); Prealbumin 22.3 mg/dL (20.0-40.0); Sodium Level 133 mmol/L (136-145)
== END | disposition home or self-care (01) ==
LOC: LABSPEC 15:52
DX: E87.1 Hypo-osmolality and hyponatremia (principal)
CPT/HCPCS: 80048; 84134; 85027

== ENCOUNTER 2023-07-10 21:07 | Inpatient (IN) | payer MEDICARE, MEDICAID, SELFPAY ==
[2023-07-10 21:08] VITALS: BP 89/61; PULSE 118; RESP 18; TEMP 36.1; O2SAT 96; BMI 35.5
--- NOTE | 2023-07-10 21:19 | EDS_ITS ---
HPI History of Present Illness Chief Complaint: Chest Pain Narrative Narrative: Patient presents with chest pain and chest pressure that started earlier today she has minimal pain now. Apparently she had a fall for weakness which was unexplained and daughter called paramedics. This is a BLS squad and I got an EKG which showed an anteroseptal STEMI and I called the STEMI prehospital. When I talk to the patient upon arrival she was complaining some chest pain and chest pressure left she said this was mild now. She denies any back pain or tearing sensation. No pleuritic component. [facility] Medical History High cholesterol HTN (hypertension) Hyponatremia Home Medications losartan 100 mg tablet 100 mg PO DAILY 04/03/23 [History Last Taken Unknown] metformin 1,000 mg tablet 1,000 mg PO BID 04/03/23 [History Last Taken Unknown] simvastatin 40 mg tablet 40 mg PO QHS 04/03/23 [History Last Taken Unknown] furosemide 40 mg tablet 40 mg PO DAILY 30 days #30 tabs 04/06/23 [Rx Last Taken Unknown] potassium chloride 20 mEq tablet,extended release(part/cryst) (Klor-Con M) 40 meq (2 x 20 mEq) PO DAILYCM 30 days #60 tabs 04/06/23 [Rx Last Taken Unknown] sennosides 8.6 mg-docusate sodium 50 mg tablet (Stool Softener-Stimulant Laxative) 2 tab PO BID PRN PRN Constipation #0 tabs 04/06/23 [Rx Last Taken Unknown] sodium chloride 1,000 mg soluble tablet 2 g (2 x 1,000 mg) PO TID 4 days #24 tabs 04/06/23 [Rx Last Taken Unknown] Allergy/AdvReac Type Severity Reaction Status Date / Time dapagliflozin [From Farxiga] Allergy Hives Verified 07/10/23 21:12 ramipril [From Altace] Allergy Other Verified 07/10/23 21:12 Surgical History History of tubal ligation Hx of appendectomy Social History Smoking Status: Never smoker ROS ROS ED ROS Narrative Past medical history: Reviewed Medications: Reviewed Social history: Noncontributory Review of systems: All systems negative except as indicated General: No fever. She did sustain a fall, she had for felt lightheaded and weak. She is denying any injuries. Eyes: No visual changes ENT: No upper airway congestion, normal voice Neck: No neck pain Cardiovascular: Chest pain as in HPI Respiratory: No shortness of breath or cough Gastrointestinal: No abdominal pain, nausea vomiting or diarrhea Genitourinary: No dysuria Musculoskeletal: Denies myalgias no difficulty with ambulation Skin: No rash EXAM Physical Exam Narrative Exam Narrative: Physical exam General: Patient appears relatively comfortable Head: Normocephalic, Atraumatic Eyes: Conjunctiva not pale ENT: Somewhat dry mucous membranes Neck: Supple, Nontender, No lymphadenopathy Cardiovascular: Regular tachycardia Respiratory: No distress, CTA bilaterally Abdomen: Soft, Nontender, Nondistended Back: Nontender, Normal Inspection. Negative for: CVA tenderness Extremities: Nontender, No edema Skin: Normal color, No rash Const Vital Signs: 07/10/23 21:08 07/10/23 21:15 07/10/23 21:17 Temperature 97 F L Temperature Source Temporal Pulse Rate 118 H Respiratory Rate 18 Respiratory Effort Normal Non-Labored Blood Pressure 89/61 L Blood Pressure Mean 70 Pulse Ox 96 Oxygen Delivery Method Room Air Nasal Cannula Oxygen Flow Rate (L/min) 2 MDM MDM MDM Narrative Medical decision making narrative: Patient elevation WA on prehospital EKG and this was called prior to arrival I talked to pipe processor who is on the way to see the patient. In fact he was here within 5 minutes of patient arrival. Brilinta and heparin were given. Patient will be admitted. She will be taken to [facility] right away. The current EKG shows slight ST elevation in V2 and V3 does not quite meet STEMI criteria however the patient did have a STEMI on prehospital and does have some chest pressure therefore it is reasonable to take her to the Human Resources Consultant Critical Care Time Critical Care Time: Yes Critical care time (excluding procedures): 30-74 minutes, Including time spent:, Discussing w/Consultants, Arranging Admission or Transfer, Performing Direct Patient Care at Bedside and - (35 minutes) Discharge Plan Triage Chief Complaint: Chest Pain ED Provider: Alex Levin Dx/Rx/DC Orders Clinical Impression: ST elevation [place] (STEMI), Chest pain, Fall Prescriptions: No Action simvastatin 40 mg tablet 40 mg PO QHS metformin 1,000 mg tablet 1,000 mg PO BID Hold Instructions: Hold for 1 week. losartan 100 mg tablet 100 mg PO DAILY potassium chloride [Klor-Con M20] 20 mEq Tablet,Er Particles/Crystals 40 meq PO DAILYCM 30 Days Qty: 60 0RF sodium chloride 1,000 mg Tablet,Soluble 2 g PO TID 4 Days Qty: 24 0RF furosemide 40 mg tablet 40 mg PO DAILY 30 Days Qty: 30 0RF sennosides-docusate sodium [Stool Softener-Stimulant Laxat] 8.6-50 mg Tablet 2 tab PO BID PRN PRN (Reason: Constipation) Qty: 0 0RF Primary Care Provider: José Antonio Evans Referrals: José Antonio Evans DO [Primary Care Provider] - Disposition Disposition: Acute Care [facility]
[2023-07-10] MEDS: Heparin Injection (Vial) 5,000 UNIT/ML VIAL 4000 UNIT IV (21:20)
[2023-07-10] MEDS: TICAGRELOR 90 MG TABLET 180 MG PO (21:20)
[2023-07-10] MEDS: Aspirin 81 MG TAB.CHEW 324 MG PO (21:21)
--- NOTE | 2023-07-10 21:22 | HP.PCM.HOS_ITS ---
HPI - General General Date of Admission: 07/10/23 Date of Service: 07/10/23 Chief Complaint: Chest tightness HPI Narrative GRUPO TRUJILLO, is a 83 F with a significant history of hypertension; hyperlipidemia; diabetes mellitus; and hyponatremia who presents to the emergency department with chest tightness that actually improved. However mik galloway also felt lightheaded and fell at her kitchen. Prehospital EKG showed ST elevation. STEMI alert was called preHospitalization. Associated with her symptoms is nausea, vomiting and diaphoresis [facility] Medical History High cholesterol HTN (hypertension) Hyponatremia Home Medications losartan 100 mg tablet 100 mg PO DAILY 04/03/23 [History Last Taken Unknown] metformin 1,000 mg tablet 1,000 mg PO BID 04/03/23 [History Last Taken Unknown] simvastatin 40 mg tablet 40 mg PO QHS 04/03/23 [History Last Taken Unknown] furosemide 40 mg tablet 40 mg PO DAILY 30 days #30 tabs 04/06/23 [Rx Last Taken Unknown] potassium chloride 20 mEq tablet,extended release(part/cryst) (Klor-Con M) 40 meq (2 x 20 mEq) PO DAILYCM 30 days #60 tabs 04/06/23 [Rx Last Taken Unknown] sennosides 8.6 mg-docusate sodium 50 mg tablet (Stool Softener-Stimulant L axative) 2 tab PO BID PRN PRN Constipation #0 tabs 04/06/23 [Rx Last Taken Unknown] sodium chloride 1,000 mg soluble tablet 2 g (2 x 1,000 mg) PO TID 4 days #24 tabs 04/06/23 [Rx Last Taken Unknown] Allergy/AdvReac Type Severity Reaction Status Date / Time dapagliflozin [From Farxiga] Allergy Hives Verified 07/10/23 21:12 ramipril [From Altace] Allergy Other Verified 07/10/23 21:12 Family History Other Heart disease Surgical History History of tubal ligation Hx of appendectomy Social History Smoking Status: Never smoker ROS ROS Narrative Pertinent positives and pertinent negatives as noted in HPI. All other systems were reviewed and are negative Vital Signs Vital Signs Vital Signs: 07/10/23 21:08 07/10/23 21:15 07/10/23 21:17 Temperature 97 F L Temperature Source Temporal Pulse Rate 118 H Respiratory Rate 18 Respiratory Effort Normal Non-Labored Blood Pressure 89/61 L Blood Pressure Mean 70 Pulse Ox 96 Oxygen Delivery Method Room Air Nasal Cannula Oxygen Flow Rate (L/min) 2 Weight Weight: 82.6 kg Body Mass Index (BMI) 35.5 Physical Exam Narrative Physical exam: General: Well-nourished, well-developed. Head: Normocephalic, atraumatic, no tenderness Eyes: Vision is grossly intact. EOMI ENT, no trauma, moist mucous membranes, no rhinorrhea Neck: Nontender, No thyromegaly. CVS: Regular rate and rhythm. S1-S2 present. No murmur, gallop or rub. Bilateral lower leg and feet edema. Respiratory : clear to auscultation bilaterally, chest wall nontender Abdomen: Soft, nontender, nondistended, normal bowel sounds, no masses : Deferred Back: Nontender, no CVA tenderness, Extremities: Nontender full range of motion, no trauma Skin: Normal color, no trauma, abrasions Neuro: Alert, oriented, cranial nerves II through XII grossly intact. Psychiatry: Normal mood. Normal affect. Not depressed. Not anxious. Results Lab / Micro Data 07/10/23 21:15 07/10/23 21:15 Assessment & Plan Assessment/Plan (1) ST elevation [place] (STEMI): QUALIFIERS: Involved coronary artery: unspecified coronary artery Qualified Code(s): I21.3 - ST elevation (STEMI) myocardial infarction of unspecified site (2) Hypotension: QUALIFIERS: Hypotension type: other hypotension type Qualified Code(s): I95.89 - Other hypotension PLAN: Plan STEMI Preop hospitalization EKG showed more prominent ST elevations in leads V2, V3 and V4 at hospital EKG showed EKG at the hospital showed mild ST elevations in V2 and V3. EKG was independently interpreted. Patient received aspirin, Brilinta and heparin at the emergency department. Troponin was ordered and to be trended. Chest x-ray was ordered Patient was taken to the cardiac cath. Per flower picker cardiac cath showed total occlusion of RCA and also occlusion and calcification of LAD. Patient was hypotensive and required Levophed infusion. Patient coded at the cardiac lab. CPR was started. She also re ceived epinephrine and amiodarone. Patient was a DNR CCA but with intubation. With patient losing her pulse and family agreed that patient would not want chest compression. Chest compression was stopped. Patient was pronounced on 07/10/2023 at 2322. Hypertension Patient received IV fluids at the emergency department and was sent to the [facility]. At the [facility] she also received Levophed. Charges/Coding Visit Charges Inpatient E&M: 79595 Init Hosp L3
[2023-07-10 21:25] LABS: Absolute Neutrophil Count 13.5 X10^3/uL (2.0-7.7); Basophil# 0.06 X10^3/uL; Basophil% 0.3 % (0-1); Eosinophils% 0.5 % (0-5); Hematocrit 31.3 % (37-47); Hemoglobin 9.7 g/dL (12.0-15.0); Lymphocyte % 28.5 % (19-41); Mean Corpuscular Hgb 30.9 pg (27.0-32.0); Mean Corpuscular Volume 99.7 fL (81-99); Mean Platelet Vol. 10.5 fl (6.2-12.0); Monocyte# 0.98 X10^3/uL; Monocyte% 4.7 % (0-10); NRBC Flagged by Analyzer 0 % (0-5); Neutrophil # 13.47 X10^3/uL (2.7-7.7); POSITIVE DIFFERENTIAL YES; Platelet Count 311 K/mm3 (150-450); RBC Distribution Width CV 14.3 % (11.6-14.6); Red Blood Count 3.14 M/mm3 (4.2-5.4); White Blood Count 20.7 K/mm3 (4.4-11.0)
[2023-07-10 21:30] LABS: Differential Indicated SCAN CRITERIA MET
[2023-07-10 21:36] LABS: Prothrombin Time (Protime)PT. 13.3 SECONDS (11.7-14.9)
[2023-07-10 21:37] LABS: Partial Thromboplast Time 25.8 Seconds (24.1-36.2)
[2023-07-10 21:41] VITALS: BP 89/61; PULSE 118; RESP 18; TEMP 36.1; O2SAT 99
[2023-07-10 21:58] LABS: Differential Comment SCANNED
[2023-07-10 22:10] LABS: Anion Gap 17 (5-15); BUN 20 mg/dL (7-18); BUN/Creat Ratio 12.3 RATIO (10-20); Calcium,Total 8.8 mg/dL (8.5-10.1); Chloride 95 mmol/L (98-107); Creatinine, Serum 1.62 mg/dL (0.55-1.02); EST Glomerular Filtration Rate 32 mL/min (>60); Est Glom Filt Rate - Afr Amer 39 mL/min (>60); Estimated Creatinine Clearance 18.24 ml/min; Glucose 362 mg/dL (74-106); Potassium 3.9 mmol/L (3.5-5.1); Sodium Level 131 mmol/L (136-145); Troponin-I HS 5899 pg/mL (3.0-54.0)
--- NOTE | 2023-07-10 23:00 | PCM.DC.SUM ---
Providers Date of Admission: 07/10/23 Primary Care Physician: Dr. José Antonio Evans DO Reason For Visit: STEMI Diagnosis Discharge Diagnosis (1) ST elevation [place] (STEMI): Status: Acute Code(s): I21.3 - ST elevation (STEMI) myocardial infarction of unspecified site Qualifiers: Involved coronary artery: unspecified coronary artery Qualified Code(s): I21.3 - ST elevation (STEMI) myocardial infarction of unspecified site (2) Hypotension: Status: Acute Code(s): I95.9 - Hypotension, unspecified Qualifiers: Hypotension type: other hypotension type Qualified Code(s): I95.89 - Other hypotension Plan STEMI Preop hospitalization EKG showed more prominent ST elevations in leads V2, V3 and V4 at hospital EKG showed Actual EKG tracing was independently visualized. EKG tracing showed[] Old records reviewed showed [] ASA 81 mg p.o. daily ordered SL NTG 0.4 mg prn as needed for chest pain ordered Morphine as needed for pain ordered We will check lipid panel. Statin: Anticoagulation: Anti-P2Y12 Receptor antibody: Glycoprotein IIb/IIIa inhibitors: Integrilin per cardiology orders Serial cardiac enzymes ordered Stat EKG as needed for chest pain []Stress test in the AM if the cardiac enzymes are negative DVT prophylaxis ordered. Medications at Discharge Home Medications losartan 100 mg tablet 100 mg PO DAILY 04/03/23 metformin 1,000 mg tablet 1,000 mg PO BID 04/03/23 simvastatin 40 mg tablet 40 mg PO QHS 04/03/23 furosemide 40 mg tablet 40 mg PO DAILY 30 days #30 tabs 04/06/23 potassium chloride 20 mEq tablet,extended release(part/cryst) (Klor-Con M) 40 meq (2 x 20 mEq) PO DAILYCM 30 days #60 tabs 04/06/23 sennosides 8.6 mg-docusate sodium 50 mg tablet (Stool Softener-Stimulant Laxative) 2 tab PO BID PRN PRN Constipation #0 tabs 04/06/23 sodium chloride 1,000 mg soluble tablet 2 g (2 x 1,000 mg) PO TID 4 days #24 tabs 04/06/23 Weight / BMI Weight Weight: 82.6 kg Body Mass Index (BMI) 35.5 ABG / Lab / Microbiology Data 07/10/23 21:15 07/10/23 21:15 Laboratory: Laboratory Results - last 24 hr 07/10/23 21:15: WBC 20.7 H, RBC 3.14 L, Hgb 9.7 L, Hct 31.3 L, MCV 99.7 H, MCH 30.9, MCHC 31.0 L, RDW Std Deviation 52.0 H, RDW Coeff of Dora 14.3, Plt Count 311, MPV 10.5, Immature Gran % (Auto) 1.000 H, Neut % (Auto) 65.0, Lymph % (Auto) 28.5, [place] % (Auto) 4.7, Eos % (Auto) 0.5, Baso % (Auto) 0.3, Absolute Neuts (auto) 13.5 H, Absolute Lymphs (auto) 5.90 H, Nucleated RBC % 0, Differential Comment SCANNED, PT 13.3, INR 1.0, APTT 25.8, Sodium 131 L, Potassium 3.9, Chloride 95 L, Carbon Dioxide 19.0 L, Anion Gap 17 H, BUN 20 H, Creatinine 1.62 H, Estim Creat Clear Calc 18.24, Est GFR (MDRD) Af Amer 39 L, Est GFR (MDRD) Non-Af 32 L, BUN/Creatinine Ratio 12.3, Glucose 362 H, Calcium 8.8, Troponin I High Sens 5899 H* Discharge Plan Admission Admit Date/Time: 07/10/23 21:25 Attending Provider: Gladys Navarro Primary Care Provider: José Antonio Evans Discharge Orders/Prescriptions Prescriptions: No Action simvastatin 40 mg tablet 40 mg PO QHS metformin 1,000 mg tablet 1,000 mg PO BID Hold Instructions: Hold for 1 week. losartan 100 mg tablet 100 mg PO DAILY potassium chloride [Klor-Con M20] 20 mEq Tablet,Er Particles/Crystals 40 meq PO DAILYCM 30 Days Qty: 60 0RF sodium chloride 1,000 mg Tablet,Soluble 2 g PO TID 4 Days Qty: 24 0RF furosemide 40 mg tablet 40 mg PO DAILY 30 Days Qty: 30 0RF sennosides-docusate sodium [Stool Softener-Stimulant Laxat] 8.6-50 mg Tablet 2 tab PO BID PRN PRN (Reason: Constipation) Qty: 0 0RF Referrals / Follow Up: José Antonio Evans, [Primary Care Provider] -
--- NOTE | 2023-07-10 23:31 | PCI.CARDCATH ---
PCI Cardiac Cath Report PCI Report: 1. Selective left coronary angiography 2. Selective right coronary angiography. 3. Attempted PCI of the culprit which is occluded calcified mid LAD. 4. Patient is status is a DNR and coded in the [facility] Family decided not to proceed with intubation or chest chest compression patient was given Levophed ABG and amiodarone ER physician and the hospitalist were at the scene along with the nursing staff and the Evidence [facility]ist team. Consent; Risk and benefit of procedure explained and patient decided to proceed to the [facility]. Preprocedure diagnosis 83-year-old patient STEMI anteroseptal with ST elevation noted in the V1 to V3 on the EKG there were no reciprocal change. Ambulance was called as the patient was having chest pressure around 3:00 in the morning and she fell down with syncopal episode. She denies any prior cardiac history, no history of stroke Patient had a history of hypertension. She usually walk with a walker at home Daughter came on with the patient and repeat EKG showed ST elevation based on that patient was given Brilinta aspirin and heparin and was taken to the [facility]. Access; Access obtained from the right radial artery. Diagnostic and interventional equipment; 1. 6 Gabonese sheath in the right radial artery 2. 5 Gabonese [place] catheter 3. 6 [place]onese JL 3 guide catheter 4. 0.014 180 cm run-through extra floppy straight guidewire. 5. 2.0 x 15 mm Emerge balloon 6. 1.2 x 15 mm regular balloon Procedure in detail; Under fluoroscopic guidance we will proceed with a [place] catheter advanced Jennifer and cannulated the left main and as well as cannulated the RCA multiple views of the left coronary system were obtained Following this angiographic view were study Findings hemodynamic hemodynamic; Aortic pressure 102/68 mmHg patient on low-dose Levophed Coronary angiography 1. Left main normal bifurcating into LAD and left circumflex 2. LAD calcified proximal LAD to mid LAD mid LAD and occluded at the midportion of the LAD Left circumflex artery had noticed significant atherosclerosis RCA TIMBER BUCKER occluded proximally heavily calcified With collateralization noted from the septal branch of the LAD to the distal RCA. Attempted PCI of the culprit which is occluded mid LAD was not successful due to heavy calcification of the mid LAD unable to cross the lesion even with the smallest balloon 1.2. Based on the difficulty of crossing the lesion and the heavily calcified LAD, called the [facility] and accepted with electrician research Dr. Pollock, electrician research accepted the patient to transfer to [facility] and admitted to their CIU. While waiting in the [facility] we will start the patient on low-dose Levophed to maintain a blood pressure above 100 mmHg systolic and she was not having any active chest pain. The patient to be admitted to the CVICU and to attempt PCI in the morning due to the heavy calcification of the mid LAD which is the culprit lesion. Patient had history of diabetes creatinine level was elevated to 1.6. She was stable clinically she does not have any symptoms of chest pain however while waiting for transfer to [facility] patient lost her pulse and coded and [facility] was called Family came to the daughter and decided not to proceed as the patient is a DNR no intubation or chest compressions. Only medication and she was given epi given amiodarone. ER physician and the hospitalist where on the CPR team and decided not to proceed further Patient pronounced . All catheters removed. Gladys Navarro MD,FACC,[facility]
--- NOTE | 2023-07-11 05:56 | EXP.PCM_ITS ---
Preliminary Cause of Preliminary Cause of Preliminary Cause of : Cardiogenic shock Date of Admission: 07/10/23 Date of : 07/11/23 Principle Diagnosis Cardiogenic shock Problem List: Active and Suspected Problems (Updated 07/10/23 @ 21:[address] Stanton Wyatt MD) Hypotension (Acute) Fall (Acute) Chest pain (Acute) ST elevation [place] (STEMI) (Acute) Hospital Course hpi: GRUPO TRUJILLO, is a 83 F with a significant history of hypertension; hyperlipidemia; diabetes mellitus; and hyponatremia who presents to the emergency department with chest tightness that actually improved. However patient also felt lightheaded and fell at her kitchen. Prehospital EKG showed ST elevation. STEMI alert was called preHospitalization. Associated with her symptoms is nausea, vomiting and diaphoresis Hospital course: Pre hospitalization EKG showed more prominent ST elevations in leads V2, V3 and V4 at hospital EKG showed EKG at the hospital showed mild ST elevations in V2 and V3. EKG was independently interpreted. Patient received aspirin, Brilinta and heparin at the emergency department. Troponin was ordered and to be trended. Chest x-ray was ordered Patient was taken to the cardiac cath. Per investigator fraud cardiac cath showed total occlusion of RCA and also occlusion and calcification of LAD. Patient was hypotensive and required Levophed infusion. Patient coded at the cardiac lab. CPR was started. She also received epinephrine and amiodarone. Patient was a DNR CCA but with intubation. With patient losing her pulse and family agreed that patient would not want chest compression. Chest compression was stopped. Patient was pronounced on 07/10/2023 at 2322. Because of hypotension patient received IV fluids at the emergency department and was sent to the [facility]. At the [facility] she also received Levophed. Patient was physically examined. Patient had no heart sounds or lung sounds. Patient had no pulse. Patient had no corneal reflex. Patient was pronounced . Date of . 07/10/2023 time of : 2321 Immediate cause of (final disease of condition resulting in ): Cardiogenic shock duration: Days/month/years: Hours Listed conditions leading to cause of (due to or as a consequence of) : Coronary artery disease Day/month/years: Years Listed other significant conditions contributing to but not resulting in the underlying cause of : Hypertension Did tobacco contribute to : Low Visit Charges OBSV E&M: 86745 Observ/hosp same date L3
== END 2023-07-10 23:25 ==
LOC: ED 21:27 → ICU 21:48
PROVIDERS: Admitting Provider Internal Medicine Interventional Cardiology; Emergency Provider Emergency Medicine; Referring Provider Internal Medicine Interventional Cardiology; Visit Provider Internal Medicine Interventional Cardiology
DX: I21.02 ST elevation (STEMI) myocardial infarction involving left anterior descending coronary artery (principal); R57.0 Cardiogenic shock; E11.9 Type 2 diabetes mellitus without complications; I25.10 Atherosclerotic heart disease of native coronary artery without angina pectoris; E78.00 Pure hypercholesterolemia, unspecified; Z79.84 Long term (current) use of oral hypoglycemic drugs; Z66 Do not resuscitate; Z79.899 Other long term (current) drug therapy
CPT/HCPCS: 80048; 84484; 85025; 85610; 85730; 93005; 93454; 99285; J7030; J7050; Q9967; A4216; C1725; C1769; C1887; C1894